=== PATIENT | male | born 1935 | race Caucasian/White ===

== ENCOUNTER 2017-03-22 15:54 | Emergency (ER) | payer MEDICARE, BC ==
[2017-03-22] MEDS ORDERED: Ondansetron INJ* 2 MG/ML VIAL IV ONE (16:40)
[2017-03-22] MEDS ORDERED: Morphine INJ* 4 MG/ML 1 ML SYRINGE IV ONE (16:40)
[2017-03-22] MEDS ORDERED: NS 0.9% 1000 ML* 1,000 ML IV ONE (16:41)
[2017-03-22 16:52] LABS: Hematocrit 39 % (42-52); Mean Corpuscular HGB Conc 34 g/dl (31-36); Mean Corpuscular Hemoglobin 33 pg (27-31); Mean Corpuscular Volume 99 fL (80-94); Mean Platelet Volume 9 um3 (7.4-10.4); Red Blood Count 3.91 10^6/ul (4.0-5.4); Red Cell Distribution Width 13 % (10.5-15); White Blood Count 5.6 10^3/ul (3.5-10.8)
[2017-03-22 17:08] LABS: BUN/Creatinine Ratio 19.5 (8-20); Calcium 8.6 mg/dL (8.6-10.3); EGFR African American 72.6 (>60); EGFR Non-African American 56.5 (>60)
[2017-03-22 18:00] VITALS: BP 129/55
[2017-03-22] MEDS ORDERED: oxyCODONE/Acetamin 5/325 MG* TAB PO ONE (18:49)
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
== END 2017-03-22 19:07 | disposition home or self-care (01) ==
LOC: ED 15:54
DX: T23.201A Burn of second degree of right hand, unspecified site, initial encounter (principal); T20.06XA Burn of unspecified degree of forehead and cheek, initial encounter; T31.0 Burns involving less than 10% of body surface; W40.1XXA Explosion of explosive gases, initial encounter; Y93.89 Activity, other specified; Y92.9 Unspecified place or not applicable; Z87.891 Personal history of nicotine dependence; Z88.5 Allergy status to narcotic agent
CPT/HCPCS: 36415; 80048; 85027; 96360; 96374; 96375; 99282; A9270-GY; J2270; J2405

== ENCOUNTER 2017-06-02 19:55 | Observation (INO) | payer MEDICARE, BC ==
[2017-06-02] MEDS ORDERED: NS 0.9% 1000 ML* 1,000 ML IV ONE (20:05)
[2017-06-02] MEDS ORDERED: Aspirin TAB* 325 MG PO ONE (20:31)
--- NOTE | 2017-06-02 20:33 | RAD ---
INDICATION: Slurring speech COMPARISON: None. TECHNIQUE: Contiguous axial sections of the brain were obtained from the skull base to the vertex without contrast. FINDINGS: The ventricles, cisterns and sulci symmetrical involutional changes. There is mild to moderate periventricular and subcortical white matter hypoattenuation most consistent with chronic microvascular disease. The topete-white matter differentiation is adequately maintained and there is no sulcal effacement. No significant focal abnormality or mass effect is present. There is no evidence for intracranial hemorrhage. No significant focal osseous abnormality is present. The visualized portion of the paranasal sinuses and mastoid air cells appear clear. IMPRESSION: Chronic findings include involutional changes and evidence of microvascular disease without CT visible acute intracranial abnormality. Findings were reported Dr. Oreilly over the telephone at 2021 hours on June 02, 2017.
[2017-06-02 20:50] LABS: Hematocrit 33 % (42-52); Hemoglobin 11.3 g/dl (14.0-18.0); Mean Corpuscular HGB Conc 34 g/dl (31-36); Mean Corpuscular Hemoglobin 33 pg (27-31); Mean Corpuscular Volume 96 fL (80-94); Mean Platelet Volume 8 um3 (7.4-10.4); Red Blood Count 3.44 10^6/ul (4.0-5.4); Red Cell Distribution Width 13 % (10.5-15); White Blood Count 8.2 10^3/ul (3.5-10.8)
[2017-06-02 21:09] LABS: Albumin 3.4 g/dL (3.2-5.2); BUN/Creatinine Ratio 26.1 (8-20); Calcium 8.6 mg/dL (8.6-10.3); EGFR African American 106.6 (>60); EGFR Non-African American 82.9 (>60); Globulin 3.4 g/dL (2-4); Potassium 3.8 mmol/L (3.5-5.0); Total Bilirubin 0.4 mg/dL (0.2-1.0); Total Protein 6.8 g/dL (6.4-8.9)
[2017-06-02 21:12] LABS: Troponin I 0.05 ng/mL (<0.04)
--- NOTE | 2017-06-02 21:16 | RAD ---
INDICATION: Possible stroke COMPARISON: Most recent comparison chest x-ray September 09, 2011 TECHNIQUE: Single AP portable view of the chest was obtained. FINDINGS: Image quality is compromised due to the relative inferiority of a portable chest x-ray. Stable postsurgical findings include sternotomy wires and surgical clips overlying the left upper mediastinum. There is been interval development of mild to moderate cardiomegaly. Pulmonary vasculature is normally engorged and slightly indistinct. There is density obscuring the left hemidiaphragm and causing left costophrenic angle blunting. Visualized bones are normal for the patient's age. IMPRESSION: In the correct clinical setting this constellation of findings could be compatible with cardiogenic pulmonary edema, potentially with a small left pleural effusion.
[2017-06-02 21:29] LABS: C Reactive Protein 32.97 mg/L (< 5.00)
[2017-06-02] MEDS ORDERED: Iohexol 350* (CONTRAST) 500 ML MDV IV ONE (21:46)
[2017-06-02 21:52] LABS: Urine Bilirubin Negative (Negative); Urine Glucose Negative (Negative); Urine Nitrite Negative (Negative)
[2017-06-03] MEDS ORDERED: NS 0.9% 1000 ML* 1,000 ML IV SCH (00:15)
[2017-06-03] MEDS ORDERED: Acetaminophen TAB* 325 MG PO PRN (01:21)
[2017-06-03] MEDS ORDERED: Ondansetron INJ* 2 MG/ML VIAL IV PRN (01:21)
--- NOTE | 2017-06-03 01:42 | ED ---
Rebekah Buck Rebecca, scribed for Freddie Oreilly MD on 06/02/17 at 2023 . Altered Mental Status - HPI Summary HPI Summary: Pt is an 82 y/o M BIBA who presents to ED after EMS was called for AMS. Son reports that at approximately 1500 he suddenly began presenting with confusion and aphasia. After onset of symptoms, the pt continued to be able to walk and was able to make dinner. Son states that he was unable to recall the president while EMS state that he was babbling and disoriented. While en route to [facility] ED , symptoms spontaneously resolved. Upon evaluation, pt cannot recall the episode , stating that he felt pretty good prior to onset and now cannot recall details of the episode. EMS note that he was in A Flutter while en route to the ED. Prior similar symptoms about 1 week ago that spontaneously resolved, though he does not remember that incident either. Notes that about 1 week ago he was seen by [facility] for L-sided facial swelling that has since resolved and he was D/C with a possible Dx of shingles. No PMHx A Fib or A Flutter. Is not on blood thinners and recently stopped his Metoprolol. - History Of Current Complaint Chief Complaint: EDAltMentalStatus Stated Complaint: POSSIBLE STROKE Time Seen by Provider: 06/02/17 20:06 Hx Obtained From: Patient, Family/Bank Reconciliator - Son, EMS Onset/Duration: Resolved Timing: Lasting Hours Severity Currently: None Character: Confusion Aggravating Factor(s): Nothing Alleviating Factor(s): Other - Spontaneous resolution Related History: Similar Episode/Diagnosed As: - Simliar episode last week - Allergies/Home Medications Allergies/Adverse Reactions: Allergies Allergy/AdvReac Type Severity Reaction Status Date / Time Codeine Allergy Unknown Verified 03/22/17 16:31 Reaction Details Home Medications: Home Medications Metoprolol Tartrate TAB* [Lopressor TAB*] 25 mg PO DAILY 06/03/17 [History Confirmed 06/03/17] PMH/Surg Hx/FS Hx/Imm Hx Cardiovascular History: Denies: Hx Atrial Fibrillation History: Denies: Hx Chronic Renal Failure, Hx Dialysis, Hx Kidney Infection, Hx Kidney Stones, Hx Renal Disease Infectious Disease History: Denies: Traveled Outside the [place] in Last 30 Days - Family History Known Family History: Positive: Cardiac Disease, Other - cancer - Social History Alcohol Use: None Hx Substance Use: No Substance Use Type: Reports: None Hx Tobacco Use: Yes Smoking Status (MU): Former Smoker Review of Systems Positive: Other - A flutter en route, per EMS Neurological: Other - Confusion and aphasia (resolved), memory loss of incidence of symptoms All Other Systems Reviewed And Are Negative: Yes Physical Exam - Summary Physical Exam Summary: General: well-appearing, no pain distress Skin: warm, color reflects adequate perfusion, dry Head: normal Eyes: EOMI, CHEN ENT: normal Neck: supple, nontender Respiratory: CTA, breath sounds present Cardiovascular: RRR Abdomen: soft, nontender Bowel: present Musculoskeletal: normal, strength/ROM intact Neurological: normal, sensory/motor intact, A&O x3 Psychological: affect/mood appropriate NIH: 0 GCS: 15 Triage Information Reviewed: Yes Vital Signs On Initial Exam: Initial Vitals Temp Pulse Resp BP Pulse Ox 100.8 F 66 19 138/76 96 06/02/17 20:20 06/02/17 20:20 06/02/17 20:20 06/02/17 20:20 06/02/17 20:20 Vital Signs Reviewed: Yes - Angela Coma Scale Best Eye Response: 4 - Spontaneous Best Motor Response: 6 - Obeys Commands Best Verbal Response: 5 - Oriented Diagnostics - Vital Signs Vital Signs Temp Pulse Resp BP Pulse Ox 06/02/17 23:30 119/52 06/02/17 23:00 56 23 104/63 93 06/02/17 22:30 125/62 06/02/17 22:01 54 21 95 06/02/17 22:00 52 23 94 06/02/17 21:30 58 21 121/59 94 06/02/17 21:01 62 22 97 06/02/17 21:00 141/98 06/02/17 20:24 62 20 138/76 96 06/02/17 20:20 100.8 F 66 19 138/76 96 - Laboratory Lab Results: Lab Results 06/02/17 06/02/17 06/02/17 Range/Units 20:30 20:30 20:30 WBC 8.2 (3.5-10.8) 10^3/ul RBC 3.44 L (4.0-5.4) 10^6/ul Hgb 11.3 L (14.0-18.0) g/dl Hct 33 L (42-52) % MCV 96 H (80-94) fL MCH 33 H (27-31) pg MCHC 34 (31-36) g/dl RDW 13 (10.5-15) % Plt Count 214 (150-450) 10^3/ul MPV 8 (7.4-10.4) um3 Neut % (Auto) 77.0 (38-83) % Lymph % (Auto) 14.5 L (25-47) % Calloway % (Auto) 7.1 (1-9) % Eos % (Auto) 0.7 (0-6) % Baso % (Auto) 0.7 (0-2) % Absolute Neuts (auto) 6.3 (1.5-7.7) 10^3/ul Absolute Lymphs (auto) 1.2 (1.0-4.8) 10^3/ul Absolute Monos (auto) 0.6 (0-0.8) 10^3/ul Absolute Eos (auto) 0.1 (0-0.6) 10^3/ul Absolute Basos (auto) 0.1 (0-0.2) 10^3/ul Absolute Nucleated RBC 0.01 10^3/ul Nucleated RBC % 0.1 INR (Anticoag Therapy) 1.08 (0.89-1.11) APTT 31.1 (26.0-36.3) seconds Sodium 135 (133-145) mmol/L Potassium 3.8 (3.5-5.0) mmol/L Chloride 104 (101-111) mmol/L Carbon Dioxide 26 (22-32) mmol/L Anion Gap 5 (2-11) mmol/L BUN 23 (6-24) mg/dL Creatinine 0.88 (0.67-1.17) mg/dL Est GFR ( Amer) 106.6 (>60) Est GFR (Non-Af Amer) 82.9 (>60) BUN/Creatinine Ratio 26.1 H (8-20) Glucose 120 H (70-100) mg/dL Lactic Acid (0.5-2.0) mmol/L Calcium 8.6 (8.6-10.3) mg/dL Total Bilirubin 0.40 (0.2-1.0) mg/dL AST 31 (13-39) U/L ALT 21 (7-52) U/L Alkaline Phosphatase 83 (34-104) U/L Troponin I 0.05 H* (<0.04) ng/mL C-Reactive Protein 32.97 H (< 5.00) mg/L B-Natriuretic Peptide ( - 100) pg/mL Total Protein 6.8 (6.4-8.9) g/dL Albumin 3.4 (3.2-5.2) g/dL Globulin 3.4 (2-4) g/dL Albumin/Globulin Ratio 1.0 (1-3) Triglycerides 115 mg/dL Cholesterol 135 mg/dL LDL Cholesterol 82 mg/dL HDL Cholesterol 30.0 mg/dL Urine Color Urine Appearance Urine pH (5-9) Ur Specific [place] (1.010-1.030) Urine Protein (Negative) Urine Ketones (Negative) Urine Blood (Negative) Urine Nitrate (Negative) Urine Bilirubin (Negative) Urine Urobilinogen (Negative) Ur Leukocyte Esterase (Negative) Urine Glucose (Negative) Influenza A (Rapid) (Negative) Influenza B (Rapid) (Negative) Blood Type Antibody Screen 06/02/17 06/02/17 06/02/17 Range/Units 20:30 20:30 20:30 WBC (3.5-10.8) 10^3/ul RBC (4.0-5.4) 10^6/ul Hgb (14.0-18.0) g/dl Hct (42-52) % MCV (80-94) fL MCH (27-31) pg MCHC (31-36) g/dl RDW (10.5-15) % Plt Count (150-450) 10^3/ul MPV (7.4-10.4) um3 Neut % (Auto) (38-83) % Lymph % (Auto) (25-47) % Calloway % (Auto) (1-9) % Eos % (Auto) (0-6) % Baso % (Auto) (0-2) % Absolute Neuts (auto) (1.5-7.7) 10^3/ul Absolute Lymphs (auto) (1.0-4.8) 10^3/ul Absolute Monos (auto) (0-0.8) 10^3/ul Absolute Eos (auto) (0-0.6) 10^3/ul Absolute Basos (auto) (0-0.2) 10^3/ul Absolute Nucleated RBC 10^3/ul Nucleated RBC % INR (Anticoag Therapy) (0.89-1.11) APTT (26.0-36.3) seconds Sodium (133-145) mmol/L Potassium (3.5-5.0) mmol/L Chloride (101-111) mmol/L Carbon Dioxide (22-32) mmol/L Anion Gap (2-11) mmol/L BUN (6-24) mg/dL Creatinine (0.67-1.17) mg/dL Est GFR ( Amer) (>60) Est GFR (Non-Af Amer) (>60) BUN/Creatinine Ratio (8-20) Glucose (70-100) mg/dL Lactic Acid 0.9 (0.5-2.0) mmol/L Calcium (8.6-10.3) mg/dL Total Bilirubin (0.2-1.0) mg/dL AST (13-39) U/L ALT (7-52) U/L Alkaline Phosphatase (34-104) U/L Troponin I (<0.04) ng/mL C-Reactive Protein (< 5.00) mg/L B-Natriuretic Peptide 282 H ( - 100) pg/mL Total Protein (6.4-8.9) g/dL Albumin (3.2-5.2) g/dL Globulin (2-4) g/dL Albumin/Globulin Ratio (1-3) Triglycerides mg/dL Cholesterol mg/dL LDL Cholesterol mg/dL HDL Cholesterol mg/dL Urine Color Urine Appearance Urine pH (5-9) Ur Specific [place] (1.010-1.030) Urine Protein (Negative) Urine Ketones (Negative) Urine Blood (Negative) Urine Nitrate (Negative) Urine Bilirubin (Negative) Urine Urobilinogen (Negative) Ur Leukocyte Esterase (Negative) Urine Glucose (Negative) Influenza A (Rapid) (Negative) Influenza B (Rapid) (Negative) Blood Type O Positive Antibody Screen Negative 06/02/17 06/02/17 Range/Units 21:28 22:24 WBC (3.5-10.8) 10^3/ul RBC (4.0-5.4) 10^6/ul Hgb (14.0-18.0) g/dl Hct (42-52) % MCV (80-94) fL MCH (27-31) pg MCHC (31-36) g/dl RDW (10.5-15) % Plt Count (150-450) 10^3/ul MPV (7.4-10.4) um3 Neut % (Auto) (38-83) % Lymph % (Auto) (25-47) % Calloway % (Auto) (1-9) % Eos % (Auto) (0-6) % Baso % (Auto) (0-2) % Absolute Neuts (auto) (1.5-7.7) 10^3/ul Absolute Lymphs (auto) (1.0-4.8) 10^3/ul Absolute Monos (auto) (0-0.8) 10^3/ul Absolute Eos (auto) (0-0.6) 10^3/ul Absolute Basos (auto) (0-0.2) 10^3/ul Absolute Nucleated RBC 10^3/ul Nucleated RBC % INR (Anticoag Therapy) (0.89-1.11) APTT (26.0-36.3) seconds Sodium (133-145) mmol/L Potassium (3.5-5.0) mmol/L Chloride (101-111) mmol/L Carbon Dioxide (22-32) mmol/L Anion Gap (2-11) mmol/L BUN (6-24) mg/dL Creatinine (0.67-1.17) mg/dL Est GFR ( Amer) (>60) Est GFR (Non-Af Amer) (>60) BUN/Creatinine Ratio (8-20) Glucose (70-100) mg/dL Lactic Acid (0.5-2.0) mmol/L Calcium (8.6-10.3) mg/dL Total Bilirubin (0.2-1.0) mg/dL AST (13-39) U/L ALT (7-52) U/L Alkaline Phosphatase (34-104) U/L Troponin I (<0.04) ng/mL C-Reactive Protein (< 5.00) mg/L B-Natriuretic Peptide ( - 100) pg/mL Total Protein (6.4-8.9) g/dL Albumin (3.2-5.2) g/dL Globulin (2-4) g/dL Albumin/Globulin Ratio (1-3) Triglycerides mg/dL Cholesterol mg/dL LDL Cholesterol mg/dL HDL Cholesterol mg/dL Urine Color Straw Urine Appearance Clear Urine pH 6.0 (5-9) Ur Specific [place] 1.005 L (1.010-1.030) Urine Protein Negative (Negative) Urine Ketones Negative (Negative) Urine Blood Negative (Negative) Urine Nitrate Negative (Negative) Urine Bilirubin Negative (Negative) Urine Urobilinogen Negative (Negative) Ur Leukocyte Esterase Negative (Negative) Urine Glucose Negative (Negative) Influenza A (Rapid) Negative (Negative) Influenza B (Rapid) Negative (Negative) Blood Type Antibody Screen Result Diagrams: 06/02/17 20:30 06/02/17 20:30 Lab Statement: Any lab studies that have been ordered have been reviewed, and results considered in the medical decision making process. - Radiology CXR Xray Interpretation: Positive (See Comments) - In the correct clinical setting this constellation of findings could be compatible with cardiogenic pulmonary edema, potentially with a small left pleural effusion. ED physician reviewed radiology report and agrees. Radiology Interpretation Completed By: Radiologist - CT Brain CT CT Interpretation: No Acute Changes - Chronic findings include involutional changes and evidence of microvascular disease without CT visible acute intracranial abnormality. Findings were reported Dr. Oreilly over the telephone at 2029 hours on June 02, 2017. ED physician reviewed radiology report and agrees. CT Interpretation Completed By: Radiologist Head/Neck CTA CT Interpretation Completed By: Radiologist - Head: No major arterial branch occlusion, vascular malformation or aneurysm 3 mm or greater. No definite acute hemorrhage, mass, or acute territorial infarct, but exam limited by contrast technique. Age-related involutional changes. Essentially clear visualized paranasal sinuses. Mastoid air cells clear. Neck: Moderate stenosis right carotid bulb and proximal ICA and very minimal stenosis left carotid bulb and proximal ICA. Patent bilateral common carotid and vertebral arteries. Retropharyngeal right ICA. Median sternotomy. Mediastinal lymphadenopathy, indeterminate. Emphysematous changes, calcified granulomas and nodular scarring upper lobes, advise followup to exclude pulmonary nodules. ED physician reviewed radiology report and agrees. - EKG 2016 Cardiac Rate: NL - bpm EKG Rhythm: Atrial Fibrillation EKG Interpretation: RBBB, L anterior vesicular block National Institutes Of Health - NIH Scale Level of Consciousness: Alert/Keenly Responsive Ask Patient the Month and His/Her Age: Both Correct Ask Pt to Open/Close Eyes and Kick Press Setter/Release Non-Paretic Hand: Both Correctly Best Gaze (Only Horizontal Eye Movement): Normal Visual Field Testing: No Visual Loss Facial Paresis-Pt to Smile & Close Eyes or Grimace Symmetry: Normal/Symmetrical Motor Function - Right Arm: No Drift-Holds 10 Seconds Motor Function - Left Arm: No Drift-Holds 10 Seconds Motor Function - Right Leg: No Drift-Holds 10 Seconds Motor Function - Left Leg: No Drift-Holds 10 Seconds Limb Ataxia-Must be out of Proportion to Weakness Present: Absent Sensory (Use Pinprick to Test Arms/Legs/Trunk/Face): Normal Best Language (Describe Picture, Name Items): No Aphasia Dysarthria (Read Several Words): Normal Extinction and Inattention: No Abnormality Total Score: 0 Re-Evaluation - Re-Evaluation First Eval Re-Evaluation Time: 21:34 Comment: Pt report she feels well, but occasoinally his HR will drop to be in the 40s. Second Eval Re-Evaluation Time: 23:16 Comment: Dscussed results with the pt. Altered Mental Statu Course/Dx - Course Assessment/Plan: Pt medications reviewed. BP noted and advised f/u with PCP. DISCUSSED RESULTS WITH PATIENT/FAMILY. DISCUSSED WITH DR BAY NURAUSTYN. ADMIT HOSPITALIST. - Diagnoses Discharge Diagnoses: Altered mental state, Fever, Bradycardia, Atrial fibrillation During the Visit The Following Alert/Code Occurred: Code Rose - Called at 2004 - Provider Notifications Discussed Care Of Patient With: Terry Bay Time Discussed With Above Provider: 20:25 Instructed by Provider To: Other - Advised that due to his NIH stroke scale being [address] [facility] ED, that he wouldnot advise tPA. Recommended a CTA in case he has a tight carotid and may need to be transferred. If head CT is negative, advised ASA and is the CTA is negaive he recommended admission and an MRI tomorrow. Discussed care of pt with Dr. Edwar Whitt (hospitalist) at 2354 who accepted pt for admission. Discharge - Discharge Plan Condition: Stable Disposition: ADMITTED TO [facility] Referrals: Bobo Linn MD [Primary Care Provider] - The documentation as recorded by the Rebekah babin Rebecca accurately reflects the service I personally performed and the decisions made by me, Freddie Oreilly MD.
[2017-06-03] MEDS ORDERED: Rivaroxaban TAB(*) 10 MG PO SCH (03:00)
--- NOTE | 2017-06-03 03:58 | HP ---
CC: Dr. Linn * ADMISSION HISTORY AND PHYSICAL: DATE OF ADMISSION: 06/02/17 PRIMARY CARE PROVIDER: Dr. Linn. HEALTHCARE PROXY: Patient does not want to identify healthcare proxy at this time. CODE STATUS: Full. SOURCE OF INFORMATION: History obtained from interview with the patient and his son, review of past medical records. RELIABILITY: Fair. CHIEF COMPLAINT: Altered mental status. HISTORY OF PRESENT ILLNESS: This is an 82-year-old man with past medical history of CAD, status post 3-vessel cardiac bypass in 2010, systolic heart failure, on no medications except for metoprolol and aspirin, who has been in his usual state of health for approximately 10 days prior, started to develop subjective low-grade fevers as well as sensation of "I do not feel 100%." It was not associated with any weakness or fatigue. He was still quite active, mowing the lawn. Denied any symptoms of cough, shortness of breath, chest pain , symptoms, diarrhea, constipation. He did notice a rash on the left side of his face approximately 10 days prior that dissipated and then appeared on the right side of his face that was nonpruritic and largely asymptomatic. Today , the patient's son was notified by his sister that the patient was confused and "talking gibberish," although he is unable to indicate what talking gibberish was in reference to. The son arrived to the patient's home. The patient had seemed fine and himself to all involved; however, was unable to name the president or where he was when EMS arrived. For this reason, it was recommended he proceeded to the emergency room. By the time he arrived in the emergency room, the patient's son felt that the patient was back to his baseline. Denied any asymmetric strength, facial asymmetry, or slurred speech during the entirety of the event. In the emergency room, the patient was noted to be in new atrial fibrillation. Hospitalist service was consulted for admission. PAST MEDICAL HISTORY: Systolic heart failure, last EF 35% in 2010, GERD, renal calculi, known right bundle branch block, three-vessel CAD, status post bypass in 2010, appendectomy in 1948, cholecystectomy in 1991, hernia repair in 2005. HOME MEDICATIONS: 1. Metoprolol 25 mg daily. 2. Aspirin 81 mg daily. ALLERGIES: To CODEINE. FAMILY HISTORY: Parents in their 90s and a brother with type 2 diabetes and sister with uterine cancer. SOCIAL HISTORY: Past tobacco, quit approximately 25 years prior, 1 pack a day for approximately 15 years. No current alcohol. REVIEW OF SYSTEMS: As per HPI, otherwise all other systems negative. PHYSICAL EXAMINATION GENERAL: Younger than stated age, lying 30 degrees in bed, interactive, no apparent distress. VITAL SIGNS: When seen by this author, 91/39, heart rate is 51, respiratory rate 16, 98% on room air. T-max 100.8 degrees Fahrenheit. HEENT: Oropharynx is clear. He has moist mucous membranes. Sclerae anicteric. NECK: He has mildly elevated JVD just below the angle of the jaw. LUNGS: Have rales at the bases of approximately half way. HEART: He is in an irregularly irregular heart rate that is bradycardic with a soft 2/6 systolic ejection murmur. It is difficult to appreciate. ABDOMEN: Soft, nontender, nondistended with positive bowel sounds. EXTREMITIES: Warm and well-perfused without clubbing, cyanosis or edema. NEUROLOGIC: He is alert and oriented x3. His cranial nerves II through XII are intact. Strength is intact throughout. Sensation is intact. SKIN: Has confluent erythematous rash, surrounding on the lateral aspect of his right eye extending behind his right ear. He has no apparent anxiety, agitation, or depression. LABORATORY DATA: Pertinent laboratory data reviewed. BUN 23, creatinine 0.88 , glucose 120, lactic acid 0.9, AST 31, ALT 21, alk phos 83, troponin I 0.05. BNP 282. LDL 82, HDL 30, total cholesterol 135. Urine is benign, influenza A and B negative. White blood cell count 8.2, hemoglobin 11.3 with MCV of 96, platelets 214. Data reviewed: EKG atrial fibrillation, ventricular rate of 68, left axis, right bundle branch block, left anterior fascicular block, no Qs, late R-wave progression. No ST or T-wave changes. CTA, head and neck, overnight read: Moderate stenosis at the right carotid bulb and proximal ICA and very minimal stenosis of the left carotid bulb and proximal ICA, bilateral common carotid and vertebral arteries. Retropharyngeal right ICA. Head, no major arterial branch occlusion, vascular malformation, or aneurysm, 3 mm or greater. ASSESSMENT AND PLAN: This is an 82-year-old man with past medical history of coronary artery disease presenting with short episode of confusion, atrial fibrillation and slow ventricular response as well as mildly elevated troponin in the setting of a low-grade fever. Altered mental status. Unclear etiology at this time with low-grade fever, infectious etiology, potentially viral in the setting of rash is a possibility. However, in the setting of atrial fibrillation, off of anticoagulation, transient ischemic attack can certainly be a possibility out of concern. I will check another troponin now, rule out NSTEMI in the setting of new atrial fibrillation and if troponin is similar or declining, we will start oral anticoagulation, otherwise heparinized. Plan on MRI tomorrow. Elevated troponin. Potentially demand with increased pulmonary and vascular congestion on chest x-ray as well as bradycardia with atrial fibrillation. However, new atrial fibrillation does concern me for active ischemia that cannot be ruled out in absence of symptoms. I will trend troponin as indicated above. Pulmonary edema. History of systolic heart failure. We will not move to diurese at this time. The patient is on no oxygen. Does not have any increased work of breathing, not feeling short of breath. We will threshold the diurese if needed. Currently limited by blood pressures. Bradycardia. Check Lyme, although rash on face not consistent with typical known rash. Hold metoprolol. Continue aspirin. DVT prophylaxis. Xarelto. If troponins remain stable. [id number]/[facility] #: [id number] [facility] HOSPITALRebecca
[2017-06-03] MEDS ORDERED: Rivaroxaban TAB(*) 20 MG TAB PO SCH (04:00)
--- NOTE | 2017-06-03 07:54 | RAD ---
HISTORY: Transient altered mental status COMPARISONS: Head CT dated June 02, 2017, CT of the chest, abdomen, pelvis dated February 21, 2011 TECHNIQUE: Multiple contiguous axial CT scans were obtained of the head and neck After the administration of nonionic intravenous contrast timed to the systemic arterial phase of contrast enhancement. Coronal and sagittal multiplanar reformations are submitted for review. Multiple 3-D maximum intensity projection reconstructions are also submitted for review. FINDINGS: CTA NECK: AORTIC ARCH: There is calcific atherosclerotic disease of the aortic arch, without ostial or proximal stenosis of the cephalic great vessels. There is a normal three-vessel branching pattern. RIGHT VERTEBRAL ARTERY: The right vertebral artery is patent along its course, without stenosis. LEFT VERTEBRAL ARTERY: The left vertebral artery is patent along its course, without stenosis. DOMINANCE: The vertebral arteries are codominant. RIGHT COMMON CAROTID ARTERY: The right common carotid artery is patent. The right carotid bifurcation occurs at C3-C4 RIGHT INTERNAL CAROTID ARTERY: There is atheromatous disease of the right carotid bifurcation, without right internal carotid artery stenosis by NASCET criteria. RIGHT EXTERNAL CAROTID ARTERY: The right external carotid artery is unremarkable. LEFT COMMON CAROTID ARTERY: The left common carotid artery is patent. The left carotid bifurcation occurs at C3-C4 LEFT INTERNAL CAROTID ARTERY: There is no left internal carotid artery stenosis by NASCET criteria. LEFT EXTERNAL CAROTID ARTERY: The left external carotid artery is unremarkable. VENOUS CIRCULATION: The venous system is unremarkable. SALIVARY GLANDS: The parotid glands, submandibular glands, sublingual glands are normal. NASAL CAVITY/NASOPHARYNX: The nasal cavity and nasopharynx are normal. ORAL CAVITY/OROPHARYNX: The oral cavity is obscured by streak artifact from dental amalgam. The visualized oral cavity and oropharynx are unremarkable. LARYNGEAL APPARATUS/HYPOPHARYNX: The laryngeal apparatus and hypopharynx are normal. UPPER AIRWAY/UPPER ESOPHAGUS: The visualized upper airway and esophagus are normal. LUNG APICES: There is calcified granuloma of the right lung apex. There is mediastinal lymphadenopathy similar to the previous examination. THYROID GLAND: The thyroid gland is normal. LYMPH NODES: There is no lymphadenopathy by size criteria. BONES AND SOFT TISSUES: Degenerative changes are noted. The patient is status post median sternotomy. CTA HEAD: INTRACRANIAL CIRCULATION: There is no aneurysm, vascular malformation, occlusion, or stenosis of the visualized intracranial circulation. The anterior communicating artery complex is clear. Bilateral posterior communicating arteries are identified. VENOUS CIRCULATION: The venous system is unremarkable. PERFUSION: There is no obvious parenchymal perfusion deficit. HEMORRHAGE/INFARCT: There is no hemorrhage or acute infarct. MASSES/SHIFT: There is no mass or shift. EXTRA-AXIAL SPACES: There are no extra-axial fluid collections. SULCI AND VENTRICLES: There is diffuse and proportional enlargement of the sulci and ventricles. CEREBRUM: There is hypoattenuation of the periventricular and subcortical white matter. BRAINSTEM: There are no focal parenchymal abnormalities. CEREBELLUM: There are no focal parenchymal abnormalities. PARANASAL SINUSES: The paranasal sinuses are clear. ORBITS: Senile calcifications are noted BONES AND SOFT TISSUE: No bone or soft tissue abnormalities are noted. OTHER: There is no abnormal enhancement. IMPRESSION: 1. 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 2. NO ANEURYSM, VASCULAR MALFORMATION, OCCLUSION, OR STENOSIS OF THE VISUALIZED INTRACRANIAL CIRCULATION. 3. UPPER MEDIASTINAL LYMPHADENOPATHY SIMILAR TO PREVIOUS CT EXAMINATIONS. CPT II Codes: 3100F
[2017-06-03] MEDS: Aspirin Low Dose CHEW TAB* 81 MG PO SCH (08:04)
--- NOTE | 2017-06-03 11:08 | RAD ---
HISTORY: TIA, dizziness, weakness COMPARISONS: Head CT dated June 02, 2017 TECHNIQUE: The following sequences were obtained of the head: Sagittal T1-weighted images, axial T2-weighted images, axial FLAIR images, axial susceptibility weighted images, axial T1-weighted images. Additionally, axial diffusion-weighted images were obtained with calculated apparent diffusion coefficients. FINDINGS: The study is limited by patient motion artifact. HEMORRHAGE/INFARCT: There are small foci of acute diffusion within the left parietal lobe. Also, there is no hemorrhage or acute infarct. MASSES/SHIFT: There is no mass or shift. EXTRA-AXIAL SPACES/MENINGES: There are no extra-axial fluid collections. SULCI AND VENTRICLES: There is diffuse and proportional enlargement of the sulci and ventricles. CEREBRUM: There is multifocal elevated T2/FLAIR signal in the periventricular and subcortical white matter. There is elevated FLAIR signal corresponding to the areas of restricted diffusion within the left parietal lobe. BRAINSTEM: There is elevated T2/FLAIR signal in the pontine white matter. CEREBELLUM: There are no focal parenchymal abnormalities. The cerebellar tonsils are normal in size and position. SELLA: The sella is normal. PINEAL: The pineal region is clear. CP ANGLE/TEMPORAL BONES: The labyrinthine structures are grossly normal. VESSELS: Normal flow-voids are noted within the visualized vertebral vasculature. DIFFUSION ABNORMALITIES: As noted above, there are small foci of restricted diffusion within the left parietal lobe PARANASAL SINUSES/MASTOIDS: The paranasal sinuses are clear. ORBITS: The orbits are unremarkable. BONES AND SOFT TISSUE: No bone or soft tissue abnormalities are noted. OTHER: None IMPRESSION: 1. SMALL FOCI OF RESTRICTED DIFFUSION CONSISTENT WITH SUBACUTE NONHEMORRHAGIC INFARCT OF THE LEFT PARIETAL LOBE. 2. DIFFUSE INVOLUTIONAL CHANGE WITH CHRONIC SMALL VESSEL ISCHEMIC CHANGES
--- NOTE | 2017-06-03 14:31 | CONS ---
CC: Dr. Linn * CONSULTATION REPORT: DATE OF CONSULT: 06/03/17 PATIENT OF: Dr. Whitt. HISTORY OF PRESENT ILLNESS: This is an 82-year-old right-handed man who presented yesterday with aphasia that was for a brief period of time, in the setting of new onset atrial fibrillation. He, yesterday afternoon, was found to be confused and talking gibberish, and he proceeded to the emergency room. There was no weakness and he actually walked up to ambulance. Although he was seen within time for tPA, by the time he arrived at the ER his speech was back to normal and he had no deficits, therefore tPA was not given. He has had no prior stroke, but he has coronary artery disease, status post 3-vessel bypass, systolic heart failure. Of note, he had some low grade fevers and rash on the left side of his face, which he thought was poison dion. He has also had hypercholesterolemia but did not tolerate statins in the past. In addition, he has new onset AFib, noted in the emergency room; he has GERD; he has renal calculi; he has a right bundle branch block. He is status post appendectomy, cholecystectomy, and herniorrhaphy. MEDICATIONS: His only medicines include: 1. Metoprolol 25 mg daily. 2. Aspirin 81 mg daily. ALLERGIES: He is allergic to CODEINE. FAMILY HISTORY: His parents in their 90s, and his brother has diabetes, a sister with uterine cancer. SOCIAL HISTORY: He quite smoking 25 years ago and has had one pack a day for 15 years. He does not drink or use drugs. REVIEW OF SYSTEMS: Negative in all 14 spheres, other than the HPI. PHYSICAL EXAM: Temperature 97.8, pulse 46, respirations 20, blood pressure 147/ 48. He is alert and oriented with normal speech and comprehension. Cranial nerves II through XII are intact, other than he had decreased nasolabial fold on the right compared to the left. His does not know whether this is a change for him or not. Speech was normal including naming, repetition and understanding. Motor exam revealed normal tone, strength and coordination and gait. Sensation intact to light touch. Reflexes are 2 and equal, downgoing toes. Discs were sharp. Chest: Clear. Cardiovascular: Irregular rate. Abdomen: Soft with positive bowel sounds. DIAGNOSTIC STUDIES/LAB DATA: I reviewed his MRI scan. His MRI scan shows acute , left, non-hemorrhagic, parietal stroke that was small but clearly present. There was some mild chronic ischemic disease. CTA showed atheromatosis but no significant stenosis of carotid blood vessels or significant proximal clot. Labs include normal CMP, other than glucose of 120. Troponin was 0.05, C- reactive protein was 32. BMP was 282. His LDL was 82. Normal INR and PTT. Serology negative for influenza. UA was negative. IMPRESSION: I discussed this with Mr. Ricci and his family. I showed the his MRI scan films that he had a small left parietal stroke that caused transient comprehensive aphasia, which seems to be completely resolved by the time he got to the emergency room, he was not a tPA candidate. The most likely cause of this stroke was his new onset atrial fibrillation and he should be anticoagulated. However, there is a risk of hemorrhage with acute anticoagulation in stroke. His stroke is small, we do not need to wait 5 to 7 days, but I would wait another day or so and then anticoagulate, after repeating the CT scan to make sure that there is no interim hemorrhage. I discussed with the family that even at that time there would be some risk for hemorrhage, but it will be reduced and by that point the risk for further stroke from additional emboli would be higher. Waiting would put him at some risk for stroke in the interim, but we are trying to balance the pros and cons of when to treat. I do not think that his stroke is due to atherosclerotic disease, but it would be impossible to be entirely sure about this. I would recommend treating his LDL to get it below 70, if he does not tolerate statin then diet or other treatment should be considered. Thank you for sharing this case. [id number]/[facility] #: [id number] BABS
--- NOTE | 2017-06-03 16:16 | PN ---
Hospitalist Progress Note I saw and examined Mr. Ricci this morning and met with his daughter Paula. He feels completely better, but has little recollection of the events that caused his family to call EMS. He feels good this morning and wants to go home. On examination, he is still in an irregular rhythm, appears euvolemic, and is neurologically in tact. He does have slight facial asymmetry. Please see Dr. Whitt's H&P for full examination. 1. Acute parietal stroke Likely embolic in nature given afib Symptoms had resolved upon arrival to ED last night, no tpa indicated He is now at his baseline and is very active Will repeat CT in the morning before initiating therapeutic anticoagulation per neurology continue ASA; I discussed statins with him, as he should be on one for his CAD as well. He does report myalgias when he tried them in the past, so we will try rosuvastatin. 2. 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 He had afib at his cardiology appointment in September and declined anticoagulation at that time. I discussed anticoagulation in depth with Mr. Ricci and his daughter, and he agrees to taking it now. He does not need rate control at this time. Will repeat TTE to ensure there are no valvular lesions contributing and that a noac will be acceptable. 3. CAD s/p CABG continue asa, add statin. He has been prescribed metoprolol but hasn't taken it for 2 weeks because he didn't think he needed it. His heart rate has been in the 40s-50s here, so we may continue to hold it.
--- NOTE | 2017-06-03 17:05 | ECHO ---
Patient: SHAHRAM ADAMSON [facility] Rec#: [id number] : 1935 Date: 06/03/2017 Age: 82y Height: 185.4 cm / 73.0 in Weight: 91.2 kg / 201.0 lbs Sex: M BSA: 2.2 Room#: 434 Admit Date#: 06/03/2017 Type: Inpatient Referring: Brooke Gramajo MD Reading: Kevin Avery DO Roller Man: Cherie Mckoy RN RDCS CC: Bobo Linn MD Transthoracic Echocardiogram Indication: Atrial fibrillation BP: 108/50 HR: 46 Rhythm: A-Flutter Findings History: CAD, CABG in 2010, CHF, RBBB, GERD, former smoker Technical Comments: The study quality is fair. The study is technically limited due to the patient's smoking history. Completed at 1550. Left Ventricle: The left ventricular chamber size is normal. Moderate concentric left ventricular hypertrophy is observed. There is normal left ventricular systolic function. The estimated ejection fraction is 60-65%. Ventricular septal wall motion has a post-operative appearance. The assessment of diastolic function is non-diagnostic. Left Atrium: The left atrium is mildly dilated. Right Ventricle: The right ventricular cavity size is normal. The right ventricular global systolic function is mildly reduced. Right Atrium: The right atrium is mildly dilated. Aortic Valve: The aortic valve is trileaflet. The aortic valve leaflets are moderately thickened. Systolic excursion of the aortic valve cusps is reduced. There is a trace of aortic regurgitation. There is mild aortic stenosis. Mitral Valve: Moderate mitral annular calcification present. The mitral valve leaflets are moderately thickened. Mitral valve leaflet mobility is mildly restricted. There is mild mitral regurgitation. There is mild mitral stenosis. Tricuspid Valve: The tricuspid valve leaflets are normal. There is trace to mild tricuspid regurgitation. No pulmonary hypertension is noted. Pulmonic Valve: The pulmonic valve appears normal. There is trace to mild pulmonic regurgitation. There is no pulmonic stenosis. Pericardium: There is no significant pericardial effusion. A pericardial fat pad is visualized. Aorta: There is no dilatation of the ascending aorta. The aortic arch is not well visualized. There is no dilation of the aortic root. Pulmonary Artery: The main pulmonary artery is not well visualized. Venous: The inferior vena cava appears normal in size. There is an approximate 50% respiratory change in the inferior vena cava dimension. Conclusions Patient appears to be in atrial fibrillation at the time of study. The left ventricular chamber size is normal. Moderate concentric left ventricular hypertrophy is observed. There is normal left ventricular systolic function. The estimated ejection fraction is 60-65%. Ventricular septal wall motion has a post-operative appearance. The left atrium is mildly dilated. The right ventricular cavity size is normal. The right ventricular global systolic function is mildly reduced. There is mild aortic stenosis. Moderate mitral annular calcification present. There is mild mitral regurgitation. There is mild mitral stenosis. No pulmonary hypertension is noted. Compared to prior study from 04/2015, the LVEF has improved from 45-50% Measurements Name Value Normal Range RVIDd (AP) 2D 2.8 cm (0.9 - 2.6) RVDdMajor (2D) 3.9 cm (2.2 - 4.4) RAd ISD 4CH 5.4 cm (3.4 - 4.9) RA (A4C)W 4 cm (2.9 - 4.6) IVSd (2D) 1.5 cm (0.6 - 1) LVPWd (2D) 1.4 cm (0.6 - 1) LVIDd (2D) 4.8 cm (3.6 - 5.4) Aortic Annulus 2.2 cm (1.4 - 2.6) Ao root diameter (2D) 3.2 cm (2.1 - 3.5) Ascending Ao 3.3 cm (2.1 - 3.4) LA dimension (AP) 2D 4.1 cm (2.3 - 3.8) LAd ISD 4CH 6.7 cm (2.9 - 5.3) LA ISD 4CH W 4.3 cm (2.5 - 4.5) Aortic root diameter (2D1 cm/m2 - Name Value Normal Range LA ESV SP 4CH (A/L) 72 ml - LA ESV SP 2CH (A/L) 69 ml - LA ESV BP (A/L) 75 ml - LA ESV BP (A/L) index 35 ml/m2 - LA ESV SP 4CH (MOD) 66 ml - LA ESV SP 2CH (MOD) 67 ml - Name Value Normal Range MV E-wave Vmax 1.5 m/sec - MV deceleration time 231 msec - LV septal e' Vmax 0.06 m/sec - LV lateral e' Vmax 0.07 m/sec - LV E:e' septal ratio 25 ratio - LV E:e' lateral ratio 21.4 ratio - Name Value Normal Range AV Vmax 2.3 m/sec - AV VTI 53.5 cm - AV peak gradient 21.4 mmHg - AV mean gradient 11.4 mmHg - LVOT diameter 2.2 cm - LVOT Vmax 1 m/sec - LVOT VTI 22.9 cm - LVOT mean gradient 2.2 mmHg - DOI (VTI) 0.43 ratio - DOI (Vmax) 0.45 ratio - SV LVOT 68.7 ml - Cardiac index 1.5 l/min/m2 - NEYMAR (continuity VTI) 1.63 cm2 - Name Value Normal Range MV Vmax 1.5 m/sec - MV VTI 38.8 cm - MV peak gradient 9.6 mmHg - MV mean gradient 2.6 mmHg - MV PHT 91 msec - MVA (PHT) 2.4 cm2 - MVA (continuity VTI) 1.8 cm2 - Name Value Normal Range TR Vmax 2.4 m/sec - TR peak gradient 23 mmHg - RAP 8 mmHg - RVSP 31 mmHg - IVC diameter 1.6 cm - Name Value Normal Range PV Vmax 0.79 m/sec -
--- NOTE | 2017-06-04 08:00 | RAD ---
HISTORY: Parietal stroke, starting anticoagulation COMPARISONS: June 02, 2017, MRI dated June 03, 2017 TECHNIQUE: Multiple contiguous axial CT scans were obtained of the head without intravenous contrast. FINDINGS: HEMORRHAGE/INFARCT: There is minimal hypoattenuation corresponding to the subacute infarct of the left parietal lobe. Elsewhere, there is no hemorrhage or acute infarct. MASSES/SHIFT: There is no mass or shift. EXTRA-AXIAL SPACES: There are no extra-axial fluid collections. SULCI AND VENTRICLES: The sulci and ventricles are normal in size and position for the patient's stated age. CEREBRUM: As noted above, there is minimal cortical hypoattenuation of the left parietal lobe corresponding to the restricted diffusion noted on MRI. BRAINSTEM: There are no focal parenchymal abnormalities. CEREBELLUM: There are no focal parenchymal abnormalities. VESSELS: The vessels are grossly normal. PARANASAL SINUSES: The paranasal sinuses are clear. ORBITS: The orbits are unremarkable. BONES AND SOFT TISSUE: No bone or soft tissue abnormalities are noted. OTHER: None IMPRESSION: THERE IS MINIMAL HYPOATTENUATION OF THE LEFT PARIETAL CORTEX CONSISTENT WITH SUBACUTE INFARCT, CORRESPONDING TO THE RESTRICTED DIFFUSION NOTED ON MRI. THERE IS NO HEMORRHAGE.
[2017-06-04] MEDS: Aspirin Low Dose CHEW TAB* 81 MG PO SCH (08:24)
[2017-06-04 08:26] VITALS: BP 133/56
--- NOTE | 2017-06-05 04:13 | DS ---
CC: Dr. Linn; Dr. Joseph; Dr. Bay * DISCHARGE SUMMARY: DATE OF ADMISSION: 06/03/17 DATE OF DISCHARGE: 06/04/17 PRIMARY CARE PROVIDER: Dr. Linn. PIN WORKER: Dr. Joseph. PRINCIPAL DISCHARGE DIAGNOSIS: Acute left parietal cerebrovascular accident. SECONDARY DISCHARGE DIAGNOSES: 1. Atrial fibrillation. 2. Coronary artery disease, status post CABG. 3. History of systolic heart failure, now with recovered ejection fraction. 4. Right bundle branch block. HOSPITAL COURSE: 1. Acute left parietal CVA. Mr. Ricci was admitted with acute onset dysarthria, which resolved upon arrival to the emergency department. He was admitted for TIA symptoms as CT head in the emergency department was negative. An MRI the following morning did show a small left parietal stroke, which was thought to account for his symptoms the prior day. Neurology was consulted, who agreed with the findings on the MRI likely contributing to his symptoms the day prior. A CT angio showed some atherosclerotic disease, but it was not thought to have accounted for his acute stroke. He was monitored over the next 24 hours and had no new neurologic deficits. He and his family agreed that he had returned to baseline. A CT scan the following day showed no hemorrhage or progression of CVA, so at that time therapeutic anticoagulation will be started. He had not been on a statin prior to admission due to history of myalgias, but he agrees to retry it. He is being prescribed rosuvastatin and I recommended taking it at bedtime and discontinuing it if he has recurrent side effects. He will be continued on his daily baby aspirin. 2. Atrial fibrillation. This was thought to be new in the emergency department ; however, upon further discussion with his book or script editor, Dr. Joseph, it was discovered that he has had atrial fibrillation in past visits; however, he deferred therapeutic anticoagulation at that time. Now that he has had a CVA, his CHADS2- VASc score is even higher and I recommended therapeutic anticoagulation to him. He does agree with starting this. Unfortunately, I discharged him with Xarelto; however, the pharmacy called and reported that he has no prescription coverage. Therefore, I switched him to warfarin 5 mg daily to start today on 06/04/17 and I scheduled a followup with his primary care physician in 4 days where he will have an INR check. He did not require any rate control during this admission. He had been on metoprolol daily at home; however, he self discontinued it 2 weeks ago due to low blood pressure and in fact while he has been here, his heart rate has been in the 40s to 50s, so I am instructing him to discontinue his metoprolol. He also is quite resistant to medications and we decided that if he will only take a few pills, aspirin and anticoagulation are more important at this point. 3. Coronary artery disease, status post CABG. He had been unable to tolerate statins in the past, but now in the setting of a new CVA and coronary artery disease, I encouraged him to try rosuvastatin again and he agrees to do so. We discontinued metoprolol due to bradycardia and he will be continued on aspirin. 4. History of systolic heart failure now with recovered ejection fraction. A repeat echocardiogram on this admission showed a preserved ejection fraction and no regional wall motion abnormalities. 5. Disposition: The patient was discharged to home on 06/04/17 with his daughter in fair condition. He will follow up with his primary care physician, Dr. Linn on 06/08/17 for an INR check and followup and he was instructed to make a followup with Dr. Joseph as well. IMAGING ON THIS ADMISSION: Brain MRI 06/03/17, 1. Small foci of restricted diffusion consistent with subacute nonhemorrhagic infarct in the left parietal lobe. 2. Diffuse involutional change with chronic small vessel ischemic changes. Echocardiogram 06/03/17, the LV chamber size is normal, moderate concentric LV hypertrophy was observed. The estimated ejection fraction is 60% to 65%. Ventricular septal wall motion has a postoperative appearance. The left atrium is mildly dilated. The RV cavity size is normal. The RV global systolic function is mildly reduced and there was mild aortic stenosis. PHYSICAL EXAMINATION: On 06/04/17, temperature 97.4 degrees, heart rate 52, respiratory rate 16, pulse ox 98% on room air, blood pressure 133/56. General: Alert, well-appearing man in no distress. HEENT: Pupils equal, round and reactive to light. Slight left-sided facial droop with reduced nasolabial fold. Neck: No JVP. No cervical adenopathy. Chest: Irregular rhythm, bradycardic. No murmurs. Lungs: Clear bilaterally. Abdomen: Soft, nontender , nondistended. Extremities: No edema, no ecchymosis. Pulses 2+ bilaterally. Neurologic: Alert and oriented x3. Follows complex commands appropriately. Strength is 5/5 throughout. Deep tendon reflexes are 2+ throughout. Sensation is grossly intact. [id number]/[facility] #: [id number] [facility]
== END 2017-06-04 08:58 | disposition home or self-care (01) ==
LOC: ED 19:55 → SSU 06-03 01:21 → MEDTELE 06-03 02:21
PROVIDERS: ADMIT Internal Medicine; ATTEND Internal Medicine
DX: I63.9 Cerebral infarction, unspecified (principal); I48.91 Unspecified atrial fibrillation; I25.10 Atherosclerotic heart disease of native coronary artery without angina pectoris; Z95.1 Presence of aortocoronary bypass graft; I50.20 Unspecified systolic (congestive) heart failure; I45.2 Bifascicular block; Z88.8 Allergy status to other drugs, medicaments and biological substances; I51.7 Cardiomegaly; I65.21 Occlusion and stenosis of right carotid artery; R59.1 Generalized enlarged lymph nodes; Z79.899 Other long term (current) drug therapy; Z87.891 Personal history of nicotine dependence; Z79.82 Long term (current) use of aspirin
CPT/HCPCS: 36415; 70450; 70496; 70498; 70551; 71010; 80053; 80061; 81003; 83605; 83880; 84484; 85025; 85610; 85730; 86140; 86618; 86850; 86900; 86901; 87040; 87502; 93005; 93306; 96360; 96361; 99284; A9270-GY; G0378; Q9967

== ENCOUNTER 2018-09-13 10:06 | Inpatient (IN) | payer MEDICARE, BC ==
--- NOTE | 2018-09-13 10:18 | ED ---
Shortness of Breath - HPI Summary HPI Summary: This patient is a 83 year old M brought in by EMS to [facility] accompanied by his son with a chief complaint of SOB and dyspnea that began earlier today. The patient was at Dr Pollack when it was noticed the patient had a low O2 sat on room air, in the 70s- per EMS. EKG done by EMS does show PVCs. He was placed on 8L of a non-rebreather mask with improvement. Pt was dx with PNA last night at [facility] and is being treated for such. The patient rates the pain 0/10 in severity. Symptoms alleviated by sitting upright at rest. Pt is on warfrin. Hx triple bypass - History of Current Complaint Time Seen by Provider: 09/13/18 10:08 Hx Obtained From: Patient, Family/Side Stitcher, EMS Onset/Duration: Lasting Hours, Still Present Timing: Constant Current Severity: Moderate Dyspnea At: Exertion Alleviating Factors: EMS Tx Associated Signs & Symptoms: Negative - fever - Allergy/Home Medications Allergies/Adverse Reactions: Allergies Allergy/AdvReac Type Severity Reaction Status Date / Time codeine Allergy Intermediate Unknown Verified 09/12/18 17:36 Reaction Details PMH/Surg Hx/FS Hx/Imm Hx Endocrine/Hematology History: Denies: Hx Diabetes, Hx Thyroid Disease Cardiovascular History: Denies: Hx Atrial Fibrillation, Hx Congestive Heart Failure, Hx Hypertension , Hx Pacemaker/ICD, Other Cardiovascular Problems/Disorders Respiratory History: Reports: Hx Pneumonia Denies: Hx Asthma, Hx Chronic Obstructive Pulmonary Disease (COPD) GI History: Reports: Hx Hiatal Hernia Denies: Hx Ulcer History: Denies: Hx Chronic Renal Failure, Hx Dialysis, Hx Kidney Infection, Hx Kidney Stones, Hx Renal Disease Sensory History: Denies: Hx Cataracts, Hx Contacts or Glasses, Hx Hearing Aid Opthamlomology History: Denies: Hx Cataracts, Hx Contacts or Glasses Psychiatric History: Denies: Hx Panic Disorder - Surgical History Surgery Procedure, Year, and Place: [address], Hernia Repair 2005, Cholycystectomy 1991, Triple Bypass 2010 - Immunization History Date of Tetanus Vaccine: UTD Date of Influenza Vaccine: NO Infectious Disease History: Denies: Hx Hepatitis, Hx Human Immunodeficiency Virus (HIV) - Family History Known Family History: Positive: Cardiac Disease, Other - cancer - Social History Alcohol Use: None Hx Substance Use: No Substance Use Type: Reports: None Hx Tobacco Use: No Smoking Status (MU): Former Smoker Type: Cigarettes Have You Smoked in the Last Year: No Review of Systems Negative: Fever Cardiovascular: Other - dx with PNA Positive: Other - low O2 sat Positive: Shortness Of Breath, Other - dypnea All Other Systems Reviewed And Are Negative: Yes Physical Exam - Summary Physical Exam Summary: Appearance: The patient is well-nourished in no acute distress and in no acute pain. Skin: The skin is warm and dry and skin color reflects adequate perfusion. HEENT: The head is normocephalic and atraumatic. The pupils are equal and reactive. The conjunctivae are clear and without drainage. Nares are patent and without drainage. Mouth reveals moist mucous membranes and the throat is without erythema and exudate. The external ears are intact. The ear canals are patent and without drainage. The tympanic membranes are intact. Neck: The neck is supple with full range of motion and non-tender. There are no carotid bruits. There is no neck vein distension. Respiratory: Chest is non-tender. Lungs are clear to auscultation but the patient is borderline tachypneic Cardiovascular: bradycardic with a soft systolic injection murmur. There is no peripheral edema and pulses are symmetrical and equal. Abdomen: The abdomen is soft and non-tender. There are normal bowel sounds heard in all four quadrants and there is no organomegaly palpated. Musculoskeletal: There is no back tenderness noted. Extremities are non-tender with full range of motion. There is good capillary refill. There is no peripheral edema or calf tenderness elicited. Neurological: Patient is alert and oriented to person, place and time. The patient has symmetrical motor strength in all four extremities. Cranial nerves are grossly intact. Deep tendon reflexes are symmetrical and equal in all four extremities. Psychiatric: The patient has an appropriate affect and does not exhibit any anxiety or depression Triage Information Reviewed: Yes Vital Signs Reviewed: Yes Diagnostics - Laboratory Result Diagrams: 09/13/18 11:02 09/13/18 11:02 Lab Statement: Any lab studies that have been ordered have been reviewed, and results considered in the medical decision making process. - Radiology CXR Radiology Interpretation Completed By: Radiologist Summary of Radiographic Findings: PROGRESSION OF MULTIFOCAL CONSOLIDATION. ED physician has reviewed this radiology report. Re-Evaluation - Re-Evaluation First Eval Re-Evaluation Time: 11:37 Change: Worse Comment: The pt's HR is at 37 BPM but he is not reporting worsening sx. Cardiology will be consulted. Course/Dx - Course Course Of Treatment: Mr. Ricci was sent over from 's office for shortness of breath and low pulse ox. He was placed on oxygen which helped and transported him. He is placed on a monitor on arrival and is noted to be bradycardic in atrial fibrillation. He is not on a beta genevieve. He is in obvious respiratory distress on arrival but his lungs are reasonably clear and he has peripheral edema. Chest x-ray is read as infiltrates by radiology. He has no fever or leukocytosis. He has a mild elevation of his BNP and his troponin. I spoke with Dr. Barraza and the hospitalist about admission and consideration for pacemaker etc. - Diagnoses Provider Diagnoses: CHF (congestive heart failure), Symptomatic bradycardia - Physician Notifications Discussed Care of Patient With: Kris Barraza Time Discussed With Above Provider: 12:58 Instructed by Provider To: Other - He has agreed to consult on the patient. - Critical Care Time Critical Care Time: 30-74 min Discharge - Sign-Out/Discharge Documenting (check all that apply): Patient Departure - admitted - Discharge Plan Condition: Fair Disposition: ADMITTED TO [facility] Referrals: Bobo Linn MD [Primary Care Provider] - - Billing Disposition and Condition Condition: FAIR Disposition: Admitted to [facility] - Attestation Statements Document Initiated by Bryce: Yes Documenting Scribe: Abebe Summers Provider For Whom Bryce is Documenting (Include Credential): Kervin Lombardi MD Scribe Attestation: I, Abebe Summers , scribed for Kervin Lombardi MD on 09/13/18 at 2004. Scribe Documentation Reviewed: Yes Provider Attestation: The documentation as recorded by the Abebe babin accurately reflects the service I personally performed and the decisions made by me, Kervin Lombardi MD Status of Scribe Document: Viewed Consult Consult: [id number]: I informed Dr. Newby of the patien's case and she has agreed to admit the patient.
[2018-09-13 11:23] LABS: ABS Basophils 0 10^3/ul (0-0.2); ABS Eosinophils 0 10^3/ul (0-0.6); ABS Lymphocytes 0.9 10^3/ul (1.0-4.8); ABS Monocytes 0.5 10^3/ul (0-0.8); ABS Neutrophils 4.6 10^3/ul (1.5-7.7); ABS Nucleated RBC 0 10^3/ul; Eosinophil % 0.4 %; Hematocrit 39 % (42-52); Hemoglobin 12.7 g/dl (14.0-18.0); Lymphocyte % 14.9 %; Mean Corpuscular HGB Conc 33 g/dl (31-36); Mean Corpuscular Hemoglobin 32 pg (27-31); Mean Corpuscular Volume 97 fL (80-94); Mean Platelet Volume 8.8 fL (7.4-10.4); Nucleated Red Blood Cells % 0; Platelet Count 182 10^3/ul (150-450); Red Cell Distribution Width 14 % (10.5-15); White Blood Count 6.1 10^3/ul (3.5-10.8)
[2018-09-13 11:41] LABS: Albumin 3.6 g/dL (3.2-5.2); Albumin/Globulin Ratio 1.1 (1-3); BUN/Creatinine Ratio 31.9 (8-20); C Reactive Protein 9.71 mg/L (<8.01); Calcium 8.7 mg/dL (8.6-10.3); EGFR African American 92.7 (>60); EGFR Non-African American 76.6 (>60); Globulin 3.3 g/dL (2-4); Potassium 4.1 mmol/L (3.5-5.0); Total Bilirubin 0.5 mg/dL (0.2-1.0); Total Protein 6.9 g/dL (6.4-8.9)
[2018-09-13 13:41] LABS: Troponin I 0.03 ng/mL (<0.04)
[2018-09-13] MEDS ORDERED: Acetaminophen TAB* 325 MG PO PRN (13:48)
[2018-09-13] MEDS ORDERED: Ondansetron INJ* 2 MG/ML VIAL IV PRN (13:48)
[2018-09-13 14:07] LABS: Influenza A Molecular NEGATIVE (Negative); Influenza B Molecular NEGATIVE (Negative)
[2018-09-13] MEDS: Furosemide IV* 10 MG/ML VIAL (40 MG) IV SLOW PU SCH ×2 (15:07→17:54)
[2018-09-13 15:25] LABS: TSH (Thyroid Stimulating Horm) 3.37 mcIU/mL (0.34-5.60)
--- NOTE | 2018-09-13 17:04 | HP ---
CC: Dr. Bobo Linn; Dr. Vaughn Joseph * ADMISSION HISTORY AND PHYSICAL: DATE OF ADMISSION: 09/13/18 PRIMARY CARE PROVIDER: Dr. Bobo Linn. MY ATTENDING WHILE IN THE HOSPITAL: Dr. Sherri Newby.* (DICTATED BY MATT MORAN) OUTPATIENT [employer]: Dr. Vaughn Joseph. CHIEF COMPLAINT: Dyspnea on exertion x2 days. HISTORY OF PRESENT ILLNESS: Mr. Ricci is an 83-year-old male with a past medical history significant for previous heart failure with reduced ejection fraction, now normalized, status post stent with severe 3-vessel CAD in 2010; history of CVA in May 2017; and atrial fibrillation, who presents to the emergency department with 2 to 3 days of shortness of breath on exertion. The patient states he has no shortness of breath at rest and he is able to walk and he only notes he is getting short of breath when he walks approximately 100 yards from his shop to his house, which is at slight grade. The patient states the he gets short of breath when he lies flat. The patient states that he is usually able to lie flat while sleeping and has no orthopnea. The patient now at times has to sleep sitting up. The patient for the past several days has had paroxysms of a dry cough without any sputum production or wheezing. The patient denies fevers, chills, nausea, vomiting, abdominal pain, diarrhea. The patient has had no sick contacts. The patient has no discernible swelling of his legs, weight gain. The patient has no pain with breathing. The patient denies any recent tick bites and had a negative Lyme serology in May of this year. The patient has no rash except for a small area of dusky skin with overlying dry skin on his right flank and another one on his left thigh. The patient is generally very active and is able to cut wood with a chainsaw, walk, and has no functional limitations he can describe. The patient went to a convenient care on 09/12/18 with the same complaints and was diagnosed with pneumonia due to the appearance of multifocal infiltrate on his chest x-ray and bradycardia; however, the patient refused to be referred to the ED. The patient then called his vaccinator on the morning of 09/13/18, who told him to go to the emergency department. The patient in the emergency department had a chest x- ray consistent with heart failure and was needing 6 L of oxygen to maintain his oxygen saturation near 100. The patient on room air was found to have an oxygen saturation in the 70s. The patient while admitted in May 2017 was found to be borderline bradycardic with heart rates in the 40s and at that time his metoprolol was discontinued. Due to concern for heart failure exacerbation and severe bradycardia, we are asked to evaluate the patient for admission. PAST MEDICAL HISTORY: Heart failure with reduced ejection fraction, most recent EF was normalized; right bundle-branch block; coronary artery disease, status post CABG in 2010; CVA; atrial fibrillation; abdominal aortic aneurysm. PAST SURGICAL HISTORY: CABG in 2010, appendectomy in 1948, cholecystectomy in 1991, hernia repair in 2005. MEDICATIONS: 1. Warfarin 5 mg daily. 2. Augmentin 875 mg started yesterday. ALLERGIES: CODEINE. FAMILY HISTORY: The patient's mother and father both of old age in their 90s and had no medical history that the patient knew about. The patient has 10 siblings, most of whom are healthy, two of which have heart disease, one of whom has a pacemaker and one of whom has from their heart disease. They are unable to elucidate further. SOCIAL HISTORY: The patient smoked for approximately 20 years and quit many years ago. The patient did not drink alcohol or use illicit drugs. 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 The patient is and has 1 child. The patient's surrogate decision maker will be his son, Henri Ricci, and his grandson, Juan M Ricci. REVIEW OF SYSTEMS: A 14-point review of systems was reviewed and is negative except as noted above in the HPI. PHYSICAL EXAMINATION GENERAL: The patient is an 83-year-old male who appears stated age, sitting comfortably in bed, in no acute distress. VITAL SIGNS: Temperature 97.8, pulse rate 38, respiratory rate 23, oxygen saturation 99% on 6 L, and blood pressure 172/60. HEENT: Head normocephalic, atraumatic. Sclerae anicteric. No conjunctival injection. Nasal mucosa moist. Oral mucosa moist. No pharyngeal erythema, discharge, or exudate. NECK: Supple, nontender. No lymphadenopathy. No carotid bruit auscultated. No JVD. RESPIRATORY: Moderate amount of inspiratory rales in the bilateral lower and middle lobes. No adventitious lung sounds. Good air exchange bilaterally. CARDIAC: Bradycardiac. Irregularly irregular rhythm. No clicks, murmurs, gallops, or rubs. Pulses are 2+ in the bilateral dorsalis pedis, posterior tibial, and radial areas, 1+ bilateral lower extremity edema. No bilateral calf tenderness. ABDOMEN: Soft, nontender, and nondistended. Bowel sounds present, normoactive in all 4 quadrants. No hepatosplenomegaly. No abdominal bruit auscultated. No hepatojugular reflux. GENITOURINARY: No suprapubic or CVA tenderness. SKIN: Small, dusky area, ovoid, approximately 2 cm in the long dimension, 1 cm in the short dimension, with 2 other similar areas on the right flank, another area per the patient on the left thigh not visualized. No other rashes except for actinic keratoses. NEUROLOGIC: Cranial nerves II through XII intact. No focal deficits. Alert and oriented x3. PSYCHIATRIC: Pleasant and cooperative. DIAGNOSTIC STUDIES/LAB DATA: White blood cell count 6.1, hemoglobin 12.7, hematocrit 39, platelet count 182, INR 2.0, D-dimer less than 200. ABG: pH 7.39, pCO2 36, pO2 86, oxygen saturation 98.1%. Sodium 138, potassium 4.1, chloride 106, carbon dioxide 27, anion gap 5, BUN 30, creatinine 0.97, glucose 152, lactic acid 1.1, calcium 8.7, bilirubin 0.5, AST 58, ALT 67, alkaline phosphatase 101, troponin I 0.03, CRP 9.71, BNP 273, protein 6.9, albumin 3.6, globulin 3.3. Studies: Chest x-ray read as confluent alveolar opacification in the right middle and lower lung cochran and left lower lung field, progressed from previous examination on 09/12/18. EKG shows right bundle-branch block, left axis deviation likely representing left anterior fascicular block, no ST-segment elevation or depression, no significant changes from previous exam, rate of 39, QTC of 444. ASSESSMENT AND PLAN: Impression: Mr. Ricci is an 83-year-old male with past medical history significant for history of heart failure, now with normalized ejection fraction; coronary artery disease, status post coronary artery bypass graft; cerebrovascular accident; atrial fibrillation; and abdominal aortic aneurysm, who presents to the emergency department with severe symptomatic bradycardia and heart failure exacerbation, who will be admitted to the hospital for diuresis and consideration for pacemaker placement. 1. Bradycardia. The patient's bradycardia is severe. The patient has a known history of bradycardia. The patient is in atrial fibrillation and has been since at least 2016 when he was most recently admitted to the hospital. The patient at that time had metoprolol stopped. It is unclear why the patient began to have more severe symptoms 2 days ago. The patient had a negative troponin and nonischemic EKG making right-sided myocardial infarction less likely; however, the patient will have troponins repeated and will have an EKG repeated in the morning. The patient had Lyme testing in May of this year; however, this will be repeated and TSH will also be tested. The patient will have an echocardiogram to assess his ejection fraction. The patient will be seen in consultation by Dr. Kris Barraza of Cardiology with consideration of pacemaker. The patient will be admitted to the ICU with external pacemaker pads placed on; however, given he is currently stable, the patient is not indicated to have transvenous pacemaker or other more intensive interventions. 2. Heart failure exacerbation. The patient with a history of heart failure with reduced ejection fraction, lowest known ejection fraction 30% to 35% after his coronary artery bypass graft in 2010. We will repeat echocardiogram. The patient will have to be diuresed with furosemide. The patient is unclear whether this is heart failure independent of bradycardia or whether the heart failure is a consequence of the patient's bradycardia. The patient's blood pressure is currently adequate and further aggressive diuresis shall be undertaken. After the patient has a pacemaker placed, if he has a decreased ejection fraction, restarting beta-blockers, LINDA inhibitors, and other heart failure medications may be indicated. The patient is generally very healthy. The patient's antibiotics will be discontinued due to symptoms consistent with heart failure and no white blood cell count, tachycardia, productive cough, fevers, chills, or other signs of infection and a CRP only nominally elevated at 9.71. 3. Coronary artery disease, status post coronary artery bypass graft in 2010. The patient does not seem to be having an active myocardial infarction. The patient will have an echocardiogram as above and repeat troponins as well as repeat electrocardiogram. The patient will be seen in consultation by Dr. Kris Barraza. The patient refuses to take statins or aspirin, so these will not be started at this time. 4. History of cerebrovascular accident. The patient has no neurologic deficits and again, refuses to take statins or aspirin. 5. Atrial fibrillation. The patient is currently on Coumadin and obviously does not need rate control agents. The patient's Coumadin will be held in anticipation of possible pacemaker placement tomorrow. 6. Abdominal aortic aneurysm. Continue outpatient monitoring. This has been stable for several years. 7. FEN. The patient will have a heart-healthy diet without caffeine. The patient is fluid overloaded, will not have fluids. 8. DVT prophylaxis. The patient is currently therapeutic on his Coumadin. Given the need for possible pacemaker, the patient will not be started on warfarin. The patient will have SCDs. The patient does not have a large amount of lower extremity edema and worsening of his pulmonary edema with SCDs is not a concern at this time. 9. Code status. The patient would like to be a DNR. This will be followed upon. TIME SPENT: Approximately 60 minutes were spent on the admission of this patient, 30 of which was spent [id number] with the patient obtaining history and physical and discussing treatment plan. The plan has been discussed with my attending, Dr. Sherri Newby, and she is in agreement. MATT MORAN [id number]/[facility] #: [id number]
--- NOTE | 2018-09-13 17:19 | ECHO ---
Patient: SHAHRAM ADAMSON [facility] Rec#: [id number] : 1935 Date: 09/13/2018 Age: 83y Weight: kg / NaN lbs Sex: M Room#: ICU 4 Admit Date#: 09/13/2018 Type: Inpatient Referring: Freddie García Reading: Kris Barraza MD Camp Housekeeper: Cherie Mckoy RN RDCS CC: Bobo Linn MD Transthoracic Echocardiogram Indication: CHF BP: 172/60 HR: 38 Rhythm: Bradycardia Findings History: CAD, CABG, CHF, RBBB, former smoker, hiatal hernia Technical Comments: The study quality is fair. The study is technically limited due to the patient's smoking history. Left Ventricle: The left ventricular chamber size is normal. Moderate concentric left ventricular hypertrophy is observed. Global left ventricular wall motion and contractility are within normal limits. There is normal left ventricular systolic function. The estimated ejection fraction is 60-65%. Abnormal left ventricular diastolic function is observed. Left Atrium: The left atrium is mildly dilated. Right Ventricle: The right ventricle is mildly dilated. The right ventricular global systolic function is low normal. Right Atrium: The right atrium is mildly dilated. Aortic Valve: The aortic valve structure is not well visualized. The aortic valve leaflets are moderately thickened. Systolic excursion of the aortic valve cusps is reduced. There is no evidence of aortic regurgitation. There is moderate aortic stenosis. The mean gradient of the aortic valve is 19 mmHg. The peak instantaneous gradient of the aortic valve is 38 mmHg. The aortic valve area, by peak velocities, is calculated at 1.1 cm2. The aortic valve area, by VTI's, is calculated at 1.4 cm2. Highest aortic valve velocity was acquired with Pedoff in apical position. Mitral Valve: There is mitral annular calcification. The mitral valve leaflets are moderately thickened. Mitral valve leaflet mobility is mildly restricted. There is mild mitral regurgitation. There is mild mitral stenosis. The mean gradient across the mitral valve is 3.4 mmHg. The peak gradient across the mitral valve is 11.2 mmHg. The pressure half time of the mitral valve is 109 msec. The mitral valve area, by pressure half time, is calculated at 2 cm2. Tricuspid Valve: The tricuspid valve leaflets are normal. There is moderate tricuspid regurgitation. The right ventricular systolic pressure is estimated to be 65-70 mmHg. There is evidence of severe pulmonary hypertension. There is no tricuspid stenosis. Pulmonic Valve: The pulmonic valve structure is not well visualized. There is mild pulmonic regurgitation. Pericardium: There is no significant pericardial effusion. A pericardial fat pad is visualized. Aorta: There is no dilatation of the ascending aorta. The aortic arch is not well visualized. There is no dilation of the aortic root. Pulmonary Artery: The main pulmonary artery is not well visualized. Venous: The inferior vena cava is dilated. There is a greater than 50% respiratory change in the inferior vena cava dimension. Conclusions Moderate concentric left ventricular hypertrophy is observed. Global left ventricular wall motion and contractility are within normal limits. There is normal left ventricular systolic function. The estimated ejection fraction is 60-65%. The right ventricular global systolic function is low normal. Systolic excursion of the aortic valve cusps is reduced. The aortic valve leaflets are moderately thickened. There is moderate aortic stenosis. The mean gradient of the aortic valve is 19 mmHg. The aortic valve area, by peak velocities, is calculated at 1.1 cm2. There is mild mitral regurgitation. There is mild mitral stenosis. The mean gradient across the mitral valve is 3.4 mmHg. There is moderate tricuspid regurgitation. There is evidence of severe pulmonary hypertension. The right ventricular systolic pressure is estimated to be 65-70 mmHg. There is no significant pericardial effusion. Compared to study of 06/03/17, the LV function is the same. The aortic stenosis is worse. the severe pulmonary HTN is new Measurements Name Value Normal Range RVIDd (AP) 2D 2.7 cm (0.9 - 2.6) RVDdMajor (2D) 4.6 cm (2.2 - 4.4) RAd ISD 4CH 5.4 cm (3.4 - 4.9) IVSd (2D) 1.4 cm (0.6 - 1) LVPWd (2D) 1.3 cm (0.6 - 1) LVIDd (2D) 4.3 cm (3.6 - 5.4) LVIDs (2D) 3 cm - LV FS (2D) 30 % (25 - 45) Aortic Annulus 2.1 cm (1.4 - 2.6) Ao root diameter (2D) 3.4 cm (2.1 - 3.5) Ascending Ao 3 cm (2.1 - 3.4) LA dimension (AP) 2D 4.2 cm (2.3 - 3.8) LAd ISD 4CH 5.8 cm (2.9 - 5.3) LA ISD 4CH W 4.5 cm (2.5 - 4.5) Name Value Normal Range LA ESV SP 4CH (A/L) 93 ml - LA ESV SP 2CH (A/L) 72 ml - LA ESV BP (A/L) 82 ml - LA ESV BP (A/L) index 38 ml/m2 - LA ESV SP 4CH (MOD) 88 ml - LA ESV SP 2CH (MOD) 69 ml - Name Value Normal Range MV E-wave Vmax 1.7 m/sec - MV deceleration time 208 msec - LV septal e' Vmax 0.05 m/sec - LV lateral e' Vmax 0.1 m/sec - LV E:e' septal ratio 34 ratio - LV E:e' lateral ratio 17 ratio - Name Value Normal Range AV Vmax 3.1 m/sec - AV VTI 65 cm - AV peak gradient 38 mmHg - AV mean gradient 19 mmHg - LVOT diameter 2.1 cm - LVOT Vmax 1 m/sec - LVOT VTI 26.5 cm - LVOT peak gradient 4.4 mmHg - LVOT mean gradient 2.1 mmHg - DOI (VTI) 0.41 ratio - DOI (Vmax) 0.32 ratio - NYEMAR (continuity Vmax) 1.1 cm2 - NEYMAR (continuity VTI) 1.4 cm2 - Name Value Normal Range MV Vmax 1.7 m/sec - MV VTI 40.6 cm - MV peak gradient 11.2 mmHg - MV mean gradient 3.4 mmHg - MV PHT 109 msec - MVA (PHT) 2 cm2 - MVA (continuity VTI) 2.2 cm2 - Name Value Normal Range TR Vmax 3.8 m/sec - TR peak gradient 58 mmHg - RAP 8 mmHg - RVSP 66 mmHg - IVC diameter 2.4 cm - Name Value Normal Range PV Vmax 1 m/sec -
--- NOTE | 2018-09-13 20:21 | CONS ---
CC: Dr. Bobo Linn at [facility]; Dr. Joseph * CARDIOLOGY CONSULTATION: DATE OF CONSULT: 09/13/18 INDICATION FOR CONSULTATION: Shortness of breath, bradycardia. HISTORY OF PRESENT ILLNESS: The patient is an 83-year-old gentleman with a history of coronary artery disease, history of diastolic dysfunction, history of chronic atrial fibrillation, who has been getting progressive shortness of breath over the last week or so. He was seen by his primary care physician yesterday, at that time he was started on antibiotics. The patient states he just got worsening shortness of breath and came to the emergency room. In the emergency room, he was in congestive heart failure with worsening of his pulmonary consolidation on chest x- ray. Of note, the patient was also found to be severely bradycardic with a right bundle- branch block. The patient has a regular rhythm that appears to be a junctional rhythm with an underlying atrial fibrillation. The patient denied any syncopal episodes. The patient reports increased shortness of breath and orthopnea. He denied any palpitations. He denied any chest pain. He denied any lightheadedness, dizziness, or syncope. PAST MEDICAL HISTORY: Significant for: 1. Heart failure with preserved ejection fraction. 2. Coronary artery disease. 3. Chronic atrial fibrillation. 4. Aortic stenosis. 5. History of gastroesophageal reflux disease. 6. Abdominal aortic aneurysm. 7. TIA. 8. Hypertension. PAST SURGICAL HISTORY: 1. Coronary bypass surgery in 2010. At that time, he had a HORNER to his LAD, saphenous vein graft to OM1, and saphenous vein graft to OM2. 2. He had a cholecystectomy in the past. OUTPATIENT MEDICATIONS: Appears to be only Coumadin. ALLERGIES: To CODEINE. FAMILY HISTORY: Father of coronary artery disease at 90. Mother of natural causes at 97. SOCIAL HISTORY: He lives with his . He is retired. He is a previous smoker. Denies tobacco use. Rare alcohol use. Tries to get regular exercise. REVIEW OF SYSTEMS: Negative for fevers and chills. Positive for shortness of breath. Positive for orthopnea. Negative for change in weight. Negative for changes in bowel or bladder habits. PHYSICAL EXAM: Height is 6 feet 1 inch, weight is 211 pounds, which is up 2 pounds from his office visit in April 2018. Heart rate is 42, blood pressure 127/91, respiratory rate is 19, oxygen saturation 99% on face mask, temperature 98.7. Sclerae anicteric. Oropharynx is pink without erythema. Carotids are 2+ with soft bilateral bruits. JVD is normal. Thyroid is normal. Cardiac Exam: Bradycardic, regular. S1, S2 with 1/6 systolic ejection murmur heard best at the right upper sternal border. PMI is normal. Lungs are clear to auscultation bilaterally. There is mild rhonchi at the right base. There is no dullness to percussion. Abdomen is soft, nontender, and nondistended with normoactive bowel sounds. Extremities show no edema. He has 2 + pulses throughout. The patient is awake, alert, and oriented. He moves all 4 extremities equally. DIAGNOSTIC STUDIES/LAB DATA: Chemistries within normal limits. BUN 30, creatinine 0.9. TSH 3.3. BNP 273. Troponin is minimally elevated at 0.05. AST and ALT are mildly elevated. CBC within normal limits. Echocardiogram shows normal LV size and systolic function, mild to moderate aortic stenosis, moderate tricuspid regurgitation with severe pulmonary hypertension with an estimated PA systolic pressure of 75 mmHg. IMPRESSION AND RECOMMENDATIONS: This is an 83-year-old gentleman who is admitted to the hospital with progressive shortness of breath. His exam is consistent with congestive heart failure, although he only has minimally elevated BNP and his chest x-ray only shows consolidation but no evidence of congestive heart failure. The patient was given Lasix in the emergency room and has had a successful diuresis. He still appears short of breath. The patient has junctional bradycardia at 40 beats per minute in addition to his atrial fibrillation. For now, my recommendation is to continue to diurese. The patient will be started on low-dose LINDA inhibitor if his blood pressure is able to tolerate it. No beta- blockers at this time. The patient will be evaluated for permanent pacemaker tomorrow by Dr. Junior. The patient's INR today is 2.0. [id number]/[facility] #: [id number] [facility]
[2018-09-14 06:23] LABS: ABS Basophils 0.1 10^3/ul (0-0.2); ABS Eosinophils 0.1 10^3/ul (0-0.6); ABS Monocytes 0.6 10^3/ul (0-0.8); ABS Neutrophils 4.4 10^3/ul (1.5-7.7); ABS Nucleated RBC 0 10^3/ul; Eosinophil % 1.1 %; Hematocrit 36 % (42-52); Hemoglobin 12.4 g/dl (14.0-18.0); Lymphocyte % 16.4 %; Mean Corpuscular HGB Conc 34 g/dl (31-36); Mean Corpuscular Hemoglobin 32 pg (27-31); Mean Corpuscular Volume 95 fL (80-94); Mean Platelet Volume 8.8 fL (7.4-10.4); Nucleated Red Blood Cells % 0.1; Platelet Count 172 10^3/ul (150-450); Red Blood Count 3.83 10^6/ul (4.00-5.40); Red Cell Distribution Width 14 % (10.5-15); White Blood Count 6.1 10^3/ul (3.5-10.8)
[2018-09-14 06:27] LABS: INR 1.77 (0.77-1.02)
[2018-09-14 06:34] LABS: BUN/Creatinine Ratio 27.7 (8-20); Calcium 8.6 mg/dL (8.6-10.3); EGFR African American 85.4 (>60); EGFR Non-African American 70.5 (>60); Magnesium 1.9 mg/dL (1.9-2.7)
[2018-09-14] MEDS: Furosemide IV* 10 MG/ML VIAL (40 MG) IV SLOW PU SCH ×2 (08:07→17:43)
--- NOTE | 2018-09-14 09:47 | PN ---
<Odalys Jones - Last Filed: 09/14/18 09:42> Subjective Date of Service: 09/14/18 - junctional bradycardia, AFL, right sided heart failure Interval History: no events last night per nursing staff. patient states breathing has grossly improved he has responded well to diuresis. 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 Medications Active Medications: Acetaminophen (Tylenol Tab*) 650 mg PO Q6H PRN PRN Reason: FEVER/PAIN Furosemide (Lasix Iv*) 40 mg IV SLOW PU 0800,1700 ANTHONY Last Admin: 09/14/18 08:07 Dose: 40 mg Ondansetron HCl (Zofran Inj*) 4 mg IV Q6H PRN PRN Reason: NAUSEA Objective Vital Signs: Temp Pulse Resp BP Pulse Ox 98.8 F 39 22 133/72 97 09/14/18 07:21 09/14/18 09:00 09/14/18 09:00 09/14/18 09:00 09/14/18 09:00 Oxygen Devices in Use Now: None Appearance: NAD A+O x3 cooperative with exam Ears/Nose/Mouth/Throat: NL Teeth, Lips, Gums, Mucous Membranes Moist Neck: Trachea Midline, No Thyroid Enlargement, Masses Respiratory: - - inspiratory wheezes noted in right upper lobe, + diffuse crackles noted with diminished sounds in right lower lobe Abdominal: NL Sounds; No Tenderness; No Distention Extremities: - - + varicose vein noted in RLE. trace pretibial edema. Neurological: Alert and Oriented x 3 Lines/Tubes/Other Access: Clean, Dry and Intact Peripheral IV Laboratory Results: 09/14/18 06:08 09/14/18 06:08 INR (Anticoag Therapy) 1.77 (0.77-1.02) H 09/14/18 06:08 Total Bilirubin 0.50 mg/dL (0.2-1.0) 09/13/18 11:02 AST 58 U/L (13-39) H 09/13/18 11:02 ALT 67 U/L (7-52) H 09/13/18 11:02 Alkaline Phosphatase 101 U/L (34-104) 09/13/18 11:02 B-Natriuretic Peptide 273 pg/mL (<=100) H 09/13/18 11:02 Total Protein 6.9 g/dL (6.4-8.9) 09/13/18 11:02 Albumin 3.6 g/dL (3.2-5.2) 09/13/18 11:02 Globulin 3.3 g/dL (2-4) 09/13/18 11:02 Albumin/Globulin Ratio 1.1 (1-3) 09/13/18 11:02 TSH 3.37 mcIU/mL (0.34-5.60) 09/13/18 11:02 09/13/18 09/13/18 09/13/18 11:02 15:25 17:25 Troponin I 0.03 0.05 H* 0.04 H* Laboratory Results - last 24 hr 09/13/18 09/13/18 09/13/18 10:45 11:02 11:02 WBC 6.1 RBC 4.00 Hgb 12.7 L Hct 39 L MCV 97 H MCH 32 H MCHC 33 RDW 14 Plt Count 182 MPV 8.8 Neut % (Auto) 76.2 Lymph % (Auto) 14.9 [place] % (Auto) 7.9 Eos % (Auto) 0.4 Baso % (Auto) 0.6 Absolute Neuts (auto) 4.6 Absolute Lymphs (auto) 0.9 L Absolute Monos (auto) 0.5 Absolute Eos (auto) 0 Absolute Basos (auto) 0 Absolute Nucleated RBC 0 Nucleated RBC % 0 INR (Anticoag Therapy) 2.00 H D-Dimer, Quantitative < 200 ABG pH 7.39 ABG pCO2 36 ABG pO2 86 ABG HCO3 22.9 ABG O2 Saturation 98.1 H ABG Base Excess -2.6 L Sodium Potassium Chloride Carbon Dioxide Anion Gap BUN Creatinine Est GFR ( Amer) Est GFR (Non-Af Amer) BUN/Creatinine Ratio Glucose Lactic Acid Calcium Magnesium Total Bilirubin AST ALT Alkaline Phosphatase Troponin I C-Reactive Protein B-Natriuretic Peptide Total Protein Albumin Globulin Albumin/Globulin Ratio TSH Influenza A (Rapid) Influenza B (Rapid) 09/13/18 09/13/18 09/13/18 11:02 11:02 11:02 WBC RBC Hgb Hct MCV MCH MCHC RDW Plt Count MPV Neut % (Auto) Lymph % (Auto) [place] % (Auto) Eos % (Auto) Baso % (Auto) Absolute Neuts (auto) Absolute Lymphs (auto) Absolute Monos (auto) Absolute Eos (auto) Absolute Basos (auto) Absolute Nucleated RBC Nucleated RBC % INR (Anticoag Therapy) D-Dimer, Quantitative ABG pH ABG pCO2 ABG pO2 ABG HCO3 ABG O2 Saturation ABG Base Excess Sodium 138 Potassium 4.1 Chloride 106 Carbon Dioxide 27 Anion Gap 5 BUN 30 H Creatinine 0.94 Est GFR ( Amer) 92.7 Est GFR (Non-Af Amer) 76.6 BUN/Creatinine Ratio 31.9 H Glucose 152 H Lactic Acid 1.1 Calcium 8.7 Magnesium Total Bilirubin 0.50 AST 58 H ALT 67 H Alkaline Phosphatase 101 Troponin I 0.03 C-Reactive Protein 9.71 H B-Natriuretic Peptide 273 H Total Protein 6.9 Albumin 3.6 Globulin 3.3 Albumin/Globulin Ratio 1.1 TSH 3.37 Influenza A (Rapid) Influenza B (Rapid) 09/13/18 09/13/18 09/13/18 13:55 15:25 17:25 WBC RBC Hgb Hct MCV MCH MCHC RDW Plt Count MPV Neut % (Auto) Lymph % (Auto) [place] % (Auto) Eos % (Auto) Baso % (Auto) Absolute Neuts (auto) Absolute Lymphs (auto) Absolute Monos (auto) Absolute Eos (auto) Absolute Basos (auto) Absolute Nucleated RBC Nucleated RBC % INR (Anticoag Therapy) D-Dimer, Quantitative ABG pH ABG pCO2 ABG pO2 ABG HCO3 ABG O2 Saturation ABG Base Excess Sodium Potassium Chloride Carbon Dioxide Anion Gap BUN Creatinine Est GFR ( Amer) Est GFR (Non-Af Amer) BUN/Creatinine Ratio Glucose Lactic Acid Calcium Magnesium Total Bilirubin AST ALT Alkaline Phosphatase Troponin I 0.05 H* 0.04 H* C-Reactive Protein B-Natriuretic Peptide Total Protein Albumin Globulin Albumin/Globulin Ratio TSH Influenza A (Rapid) Negative Influenza B (Rapid) Negative 09/14/18 09/14/18 09/14/18 06:08 06:08 06:08 WBC 6.1 RBC 3.83 L Hgb 12.4 L Hct 36 L MCV 95 H MCH 32 H MCHC 34 RDW 14 Plt Count 172 MPV 8.8 Neut % (Auto) 71.8 Lymph % (Auto) 16.4 [place] % (Auto) 9.7 Eos % (Auto) 1.1 Baso % (Auto) 1.0 Absolute Neuts (auto) 4.4 Absolute Lymphs (auto) 1.0 Absolute Monos (auto) 0.6 Absolute Eos (auto) 0.1 Absolute Basos (auto) 0.1 Absolute Nucleated RBC 0 Nucleated RBC % 0.1 INR (Anticoag Therapy) 1.77 H D-Dimer, Quantitative ABG pH ABG pCO2 ABG pO2 ABG HCO3 ABG O2 Saturation ABG Base Excess Sodium 137 Potassium 4.0 Chloride 103 Carbon Dioxide 28 Anion Gap 6 BUN 28 H Creatinine 1.01 Est GFR ( Amer) 85.4 Est GFR (Non-Af Amer) 70.5 BUN/Creatinine Ratio 27.7 H Glucose 137 H Lactic Acid Calcium 8.6 Magnesium 1.9 Total Bilirubin AST ALT Alkaline Phosphatase Troponin I C-Reactive Protein B-Natriuretic Peptide Total Protein Albumin Globulin Albumin/Globulin Ratio TSH Influenza A (Rapid) Influenza B (Rapid) Diagnostic Imaging: Echo 09/13/2018; LVEF 60-65%, mild RV dilatation, severe pulmonary HTN with moderate and mild MS. EKG Data: Telemetry reveiwed. Junctional bradycardia rates 35-40 with underlying AFL 4:1 Assessment/Plan #1 Sudden onset c/o SOB three days ago with hypoxia noted at our clinic. He has new severe pulmonary HTN with mild RV dilatation and troponinemia. He adds that two months ago he noted RLE > LLE swelling he contributed this to his known varicose veins. I spoke with hospitalist who are to r/o PE via CTA chest. He is on coumadin however, prior US abdomen in January 2018 noted thrombus within AAA? #2 Junctional bradycardia; not on AV demetra agents he is hemodynamically stable at this time. Will need eventual PPM tentatively 09/15/2018. #3 Perm AFL with 4:1 conduction; not symptomatic. Chads Vasc>2 given h/o TIA in 2017. Recommend starting IV heparin as a bridge given INR 1.7 today. He has been in AFL since 2017 after review of ekgs. #4 Severe pulmonary HTN with right sided heart failure; PE to be r/o today. responded well to diuresis. RVSP in 2014 on outpatient echo was 34mmHG. #5 Troponinemia; unclear etiology. no has not c/o chest pain. prior anginal equivalent was SOB per patient. He has a h/o CABG in 2010. no WMA noted on echo yesterday. Will start ASA 81/day unclear why he is not on ASA for secondary prevention given prior CABG. no BBlocker due to above #1 however this can be addressed after PPM placed. Unless otherwise contraindicated would recommend moderate dose statin therapy. He had mild transaminities so this can be addressed outpatient. May need eventual ischemic eval will follow. Attending: Kimberly Junior <Kimberly Junior - Last Filed: 09/14/18 16:26> Medications Active Medications: Acetaminophen (Tylenol Tab*) 650 mg PO Q6H PRN PRN Reason: FEVER/PAIN Aspirin (Aspirin 81 Mg Chew Tab*) 81 mg PO DAILY [facility] Last Admin: 09/14/18 10:20 Dose: 81 mg Furosemide (Lasix Iv*) 40 mg IV SLOW PU 0800,1700 [facility] Last Admin: 09/14/18 08:07 Dose: 40 mg Heparin Sodium/Dextrose (Heparin Drip 25,000 Units(*)) 25,000 units in 500 mls @ 0 mls/hr IV PER RATE [facility]; Protocol Last Admin: 09/14/18 13:04 Dose: 28 mls/hr Ondansetron HCl (Zofran Inj*) 4 mg IV Q6H PRN PRN Reason: NAUSEA Objective Vital Signs: Temp Pulse Resp BP Pulse Ox 99 F 45 24 173/71 94 09/14/18 11:31 09/14/18 15:00 09/14/18 15:00 09/14/18 11:01 09/14/18 15:00 Laboratory Results: 09/14/18 06:08 09/14/18 06:08 INR (Anticoag Therapy) 1.77 (0.77-1.02) H 09/14/18 06:08 APTT 40.2 seconds (26.0-36.3) H 09/14/18 12:13 Total Bilirubin 0.50 mg/dL (0.2-1.0) 09/13/18 11:02 AST 58 U/L (13-39) H 09/13/18 11:02 ALT 67 U/L (7-52) H 09/13/18 11:02 Alkaline Phosphatase 101 U/L (34-104) 09/13/18 11:02 B-Natriuretic Peptide 273 pg/mL (<=100) H 09/13/18 11:02 Total Protein 6.9 g/dL (6.4-8.9) 09/13/18 11:02 Albumin 3.6 g/dL (3.2-5.2) 09/13/18 11:02 Globulin 3.3 g/dL (2-4) 09/13/18 11:02 Albumin/Globulin Ratio 1.1 (1-3) 09/13/18 11:02 TSH 3.37 mcIU/mL (0.34-5.60) 09/13/18 11:02 09/13/18 09/13/18 09/13/18 11:02 15:25 17:25 Troponin I 0.03 0.05 H* 0.04 H* Assessment/Plan CT scan shows significant mediastinal lymphadenopathy and lung abnormalities. Granulomatous changes noted. Radiology differential included metastatic disease. My differential includes sarcoid. Patient denies weight loss or fevers, descibed horrible dry cough, and describes "slowing down" 4-6 months. Monitor: Monitor: coarse fib vs flutter with regular bradycardic ventricular response (40 bpm). 6 beat run of MM VT I agree with the above, tentative plan for single chamber pacer Wednesday (unable to schedule ) for bradycardia. For VT and CAD will add beta genevieve, discussed with colleagues, with normal EF even if sarcoid unlikely to need ICD. Will consult pulmonary for abnormal CT, possible bx and I sent an LINDA level off. Curbsided Dr Mukherjee today, no pulmonary reason not to implant device. I differ to hospitalist to f/u on pulmonary w/u, consults. LFT elevation likely related to right heart failure, if so it should improve with dieresis.
[2018-09-14] MEDS: Aspirin 81 mg CHEW TAB* 81 MG TAB.CHEW PO SCH (10:20)
[2018-09-14] MEDS ORDERED: Iohexol 350* (CONTRAST) 500 ML MDV IV ONE (11:27)
[2018-09-14] MEDS ORDERED: Atropine SYRINGE* 0.1 MG/ML 10 ML SYRINGE (1 MG) ONE (11:36)
[2018-09-14] MEDS: Heparin DRIP 25,000 UNITS(*) 25,000 UNITS/500 ML BAG IV SCH (13:04)
[2018-09-14] MEDS ORDERED: ceFAZolin 2 GM PREMIX in ORs 2 GM/50 ML BAG IVPB ONE (16:28)
--- NOTE | 2018-09-14 17:23 | PN ---
Subjective Date of Service: 09/14/18 Interval History: Patient with no complaints. reports shortness of breath is improved while lying bed. Denies chest pain or shortness of breath. Denies abd pain n/v/d. Family History: Unchanged from Admission Social History: Unchanged from Admission Past Medical History: Unchanged from Admission Objective Active Medications: Acetaminophen (Tylenol Tab*) 650 mg PO Q6H PRN PRN Reason: FEVER/PAIN Aspirin (Aspirin 81 Mg Chew Tab*) 81 mg PO DAILY [facility] Last Admin: 09/14/18 10:20 Dose: 81 mg Furosemide (Lasix Iv*) 40 mg IV SLOW PU 0800,1700 [facility] Last Admin: 09/14/18 08:07 Dose: 40 mg Heparin Sodium/Dextrose (Heparin Drip 25,000 Units(*)) 25,000 units in 500 mls @ 0 mls/hr IV PER RATE [facility]; Protocol Last Admin: 09/14/18 13:04 Dose: 28 mls/hr Cefazolin Sodium/Dextrose (Kefzol 2 Gm Premix In Ors(*)) 2 gm in 50 mls @ 100 mls/hr IVPB ONCE ONE Stop: 09/16/18 07:29 Ondansetron HCl (Zofran Inj*) 4 mg IV Q6H PRN PRN Reason: NAUSEA Vital Signs - 8 hr 09/14/18 09/14/18 09/14/18 10:00 11:00 11:01 Temperature Pulse Rate 39 43 41 Respiratory 26 25 17 Rate Blood Pressure 173/71 (mmHg) O2 Sat by Pulse 99 96 98 Oximetry 09/14/18 09/14/18 09/14/18 11:31 12:00 12:09 Temperature 99 F Pulse Rate 39 Respiratory 21 22 Rate Blood Pressure (mmHg) O2 Sat by Pulse 98 Oximetry 09/14/18 09/14/18 09/14/18 13:00 14:00 15:00 Temperature Pulse Rate 40 41 45 Respiratory 22 22 22 Rate Blood Pressure (mmHg) O2 Sat by Pulse 95 91 94 Oximetry 09/14/18 09/14/18 09/14/18 15:24 16:00 16:01 Temperature Pulse Rate 43 44 44 Respiratory 24 18 22 Rate Blood Pressure 170/62 141/62 (mmHg) O2 Sat by Pulse 94 93 92 Oximetry Oxygen Devices in Use Now: None Appearance: elderly male sitting in the bed, no acute distress Eyes: No Scleral Icterus Ears/Nose/Mouth/Throat: NL Teeth, Lips, Gums, Mucous Membranes Moist Neck: NL Appearance and Movements; NL JVP, Trachea Midline Respiratory: Symmetrical Chest Expansion and Respiratory Effort, Clear to Auscultation Cardiovascular: NL Sounds; No Murmurs; No JVD, No Edema Abdominal: NL Sounds; No Tenderness; No Distention Extremities: No Edema, No Clubbing, Cyanosis Skin: No Rash or Ulcers Neurological: Alert and Oriented x 3 Nutrition: Taking PO's Result Diagrams: 09/14/18 06:08 09/14/18 06:08 Microbiology and Other Data: Microbiology 09/13/18 11:10 Aerobic Blood Culture - Preliminary Blood Venous No Growth Day 1 Anaerobic Blood Culture - Preliminary No Growth Day 1 09/13/18 10:57 Aerobic Blood Culture - Preliminary Blood Venous No Growth Day 1 Anaerobic Blood Culture - Preliminary No Growth Day 1 09/13/18 15:25 Nasal Screen MRSA (PCR) - Final Nasal Mrsa Not Detected 09/13/18 13:30 Influenza Types A,B Antigen - Final Nasopharyngeal Specimen received for Influenza A/B Molecular testing Assess/Plan/Problems-Billing Assessment: Mr. Ricci is an 83 y.o male with a pmhx significant for a-fib , cad, chf, hx of cva who presented to the ER with the complaints of shortness of breath. found donna bradycardic at 39 . - Patient Problems (1) CHF (congestive heart failure) Current Visit: Yes Status: Acute Code(s): I50.9 - HEART FAILURE, UNSPECIFIED SNOMED Code(s): 01226014 Comment: Suspect this is related to his bradycardia - will continue with lasix 40 mg daily - strict i/o - daily weights (2) Bradycardia Current Visit: Yes Status: Acute Code(s): R00.1 - BRADYCARDIA, UNSPECIFIED SNOMED Code(s): 01078304 Comment: Cardiology consulted - will go for pacermaker placement on wednesday - heparin drip while coumadin is on hold - will stop heparin drip at midnight on 09/15/2018- for pacemaker implant (3) Pulmonary nodules Current Visit: Yes Status: Acute Code(s): R91.8 - OTHER NONSPECIFIC ABNORMAL FINDING OF LUNG FIELD SNOMED Code(s): 948282568 Comment: - multiple pulmonary nodules - seen on CTA of the chest today - no PE - will consult Dr. Mukherjee - will get Ct- abd/pelvis to r/o metastatic disease (4) History of CVA (cerebrovascular accident) Current Visit: Yes Status: Acute Code(s): Z86.73 - PRSNL HX OF TIA (TIA), AND CEREB INFRC W/O RESID DEFICITS SNOMED Code(s): 649487174 Comment: aspirin 81 mg daily - not currently on statin - coumadin on hold for pacemaker surgery (5) CAD (coronary artery disease) Current Visit: Yes Status: Acute Code(s): I25.10 - ATHSCL HEART DISEASE OF [place] CORONARY ARTERY W/O ANG PCTRS SNOMED Code(s): 73959507 Comment: not on medications - continue aspirin 81 mg - patient with bradycardia - will go for pacemaker on wednesday (6) Elevated troponin Current Visit: Yes Status: Acute Code(s): R74.8 - ABNORMAL LEVELS OF OTHER SERUM ENZYMES SNOMED Code(s): 161281508 Comment: trended down - no chest pain - suspect this is related to demand ischemia d/t chf (7) Atrial fibrillation Current Visit: No Status: Acute Code(s): I48.91 - UNSPECIFIED ATRIAL FIBRILLATION SNOMED Code(s): 57093375 Comment: coumadin on hold- will bridge with heparin drip while waiting for pacemaker - bradycardia - no medications for rate control at home (8) DVT prophylaxis Current Visit: Yes Status: Acute Code(s): TNP7677 - SNOMED Code(s): 034152955 Comment: heparin drip (9) Full code status Current Visit: Yes Status: Acute Code(s): Z78.9 - OTHER SPECIFIED HEALTH STATUS SNOMED Code(s): 760727076
[2018-09-14] MEDS ORDERED: NS 0.9% 500 ML* 500 ML IV ONE (18:18)
[2018-09-14 19:42] LABS: Activated Partial Thrombo Time 63.1 seconds (26.0-36.3); INR 1.6 (0.77-1.02)
[2018-09-15 05:57] LABS: BUN/Creatinine Ratio 32.3 (8-20); Calcium 8.7 mg/dL (8.6-10.3); EGFR African American 93.9 (>60); EGFR Non-African American 77.6 (>60); Potassium 3.8 mmol/L (3.5-5.0)
[2018-09-15 06:33] LABS: Free T4 0.86 ng/dL (0.61-1.12)
[2018-09-15] MEDS: Aspirin 81 mg CHEW TAB* 81 MG TAB.CHEW PO SCH (07:47)
[2018-09-15] MEDS: Benzocaine/Menthol LOZ* 1 LOZENGE PO PRN ×2 (07:47→22:14)
[2018-09-15] MEDS: Furosemide IV* 10 MG/ML VIAL (40 MG) IV SLOW PU SCH (07:47)
[2018-09-15] MEDS: Heparin DRIP 25,000 UNITS(*) 25,000 UNITS/500 ML BAG IV SCH (08:11)
[2018-09-15] MEDS ORDERED: Potassium Chlor TAB* 20 MEQ TAB.ER PO ONE (09:16)
--- NOTE | 2018-09-15 09:27 | PN ---
Subjective Date of Service: 09/15/18 - junctional bradycardia, AFL, right sided heart failure Interval History: no events last night per nursing staff. patient states breathing has grossly improved he has responded well to diuresis he adds breathing is back to baseline. no c/o chest pain, palpitations, dizziness, syncope. He has lost 10lbs since 09/14/2018 Medications Active Medications: Acetaminophen (Tylenol Tab*) 650 mg PO Q6H PRN PRN Reason: FEVER/PAIN Aspirin (Aspirin 81 Mg Chew Tab*) 81 mg PO DAILY [facility] Last Admin: 09/15/18 07:47 Dose: 81 mg Furosemide (Lasix Tab*) 40 mg PO DAILY [facility] Heparin Sodium/Dextrose (Heparin Drip 25,000 Units(*)) 25,000 units in 500 mls @ 0 mls/hr IV PER RATE [facility]; Protocol Last Admin: 09/15/18 08:11 Dose: 24 mls/hr Cefazolin Sodium/Dextrose (Kefzol 2 Gm Premix In Ors(*)) 2 gm in 50 mls @ 100 mls/hr IVPB ONCE ONE Stop: 09/16/18 07:29 Ondansetron HCl (Zofran Inj*) 4 mg IV Q6H PRN PRN Reason: NAUSEA Potassium Chloride (Klor Con Er Tab*) 40 meq PO ONCE ONE Stop: 09/15/18 09:17 Throat Lozenges (Chloraseptic Miri*) 1 miri PO Q3H PRN PRN Reason: SORE THROAT Last Admin: 09/15/18 07:47 Dose: 1 miri Objective Vital Signs: Temp Pulse Resp BP Pulse Ox 97.8 F 41 16 111/60 93 09/15/18 08:00 09/15/18 08:47 09/15/18 08:47 09/15/18 08:47 09/15/18 08:47 Oxygen Devices in Use Now: None Appearance: NAD A+O x3 cooperative with exam Ears/Nose/Mouth/Throat: NL Teeth, Lips, Gums, Mucous Membranes Moist Neck: Trachea Midline, No Thyroid Enlargement, Masses Respiratory: - - inspiratory wheezes noted in right upper lobe, + diffuse crackles noted with diminished sounds in right lower lobe Cardiovascular: - - Kulwinder S1, S2 irregular rate and rhythm. + 3/6 systolic aortic valve murmur, no gallop or rub. Abdominal: NL Sounds; No Tenderness; No Distention Extremities: - - + varicose vein noted in RLE. trace pretibial edema. Neurological: Alert and Oriented x 3 Lines/Tubes/Other Access: Clean, Dry and Intact Peripheral IV Laboratory Results: 09/14/18 06:08 09/15/18 05:31 INR (Anticoag Therapy) 1.60 (0.77-1.02) H 09/14/18 19:20 APTT 88.7 seconds (26.0-36.3) H 09/15/18 01:53 Total Bilirubin 0.50 mg/dL (0.2-1.0) 09/13/18 11:02 AST 58 U/L (13-39) H 09/13/18 11:02 ALT 67 U/L (7-52) H 09/13/18 11:02 Alkaline Phosphatase 101 U/L (34-104) 09/13/18 11:02 B-Natriuretic Peptide 273 pg/mL (<=100) H 09/13/18 11:02 Total Protein 6.9 g/dL (6.4-8.9) 09/13/18 11:02 Albumin 3.6 g/dL (3.2-5.2) 09/13/18 11:02 Globulin 3.3 g/dL (2-4) 09/13/18 11:02 Albumin/Globulin Ratio 1.1 (1-3) 09/13/18 11:02 TSH 3.37 mcIU/mL (0.34-5.60) 09/13/18 11:02 09/13/18 09/13/18 09/13/18 11:02 15:25 17:25 Troponin I 0.03 0.05 H* 0.04 H* Laboratory Last Values WBC 6.1 10^3/ul (3.5-10.8) 09/14/18 06:08 RBC 3.83 10^6/ul (4.00-5.40) L 09/14/18 06:08 Hgb 12.4 g/dl (14.0-18.0) L 09/14/18 06:08 Hct 36 % (42-52) L 09/14/18 06:08 MCV 95 fL (80-94) H 09/14/18 06:08 MCH 32 pg (27-31) H 09/14/18 06:08 MCHC 34 g/dl (31-36) 09/14/18 06:08 RDW 14 % (10.5-15) 09/14/18 06:08 Plt Count 172 10^3/ul (150-450) 09/14/18 06:08 MPV 8.8 fL (7.4-10.4) 09/14/18 06:08 Neut % (Auto) 71.8 % 09/14/18 06:08 Lymph % (Auto) 16.4 % 09/14/18 06:08 [place] % (Auto) 9.7 % 09/14/18 06:08 Eos % (Auto) 1.1 % 09/14/18 06:08 Baso % (Auto) 1.0 % 09/14/18 06:08 Absolute Neuts (auto) 4.4 10^3/ul (1.5-7.7) 09/14/18 06:08 Absolute Lymphs (auto) 1.0 10^3/ul (1.0-4.8) 09/14/18 06:08 Absolute Monos (auto) 0.6 10^3/ul (0-0.8) 09/14/18 06:08 Absolute Eos (auto) 0.1 10^3/ul (0-0.6) 09/14/18 06:08 Absolute Basos (auto) 0.1 10^3/ul (0-0.2) 09/14/18 06:08 Absolute Nucleated RBC 0 10^3/ul 09/14/18 06:08 Nucleated RBC % 0.1 09/14/18 06:08 INR (Anticoag Therapy) 1.60 (0.77-1.02) H 09/14/18 19:20 APTT 88.7 seconds (26.0-36.3) H 09/15/18 01:53 D-Dimer, Quantitative < 200 ng/mL (Less Than 230) 09/13/18 11:02 ABG pH 7.39 (7.35-7.45) 09/13/18 10:45 ABG pCO2 36 mmHg (35-45) 09/13/18 10:45 ABG pO2 86 mmHg (80-100) 09/13/18 10:45 ABG HCO3 22.9 mmol/L (19-31) 09/13/18 10:45 ABG O2 Saturation 98.1 % (94.0-98.0) H 09/13/18 10:45 ABG Base Excess -2.6 mmol/L (-2.0-2.0) L 09/13/18 10:45 Sodium 135 mmol/L (135-145) 09/15/18 05:31 Potassium 3.8 mmol/L (3.5-5.0) 09/15/18 05:31 Chloride 100 mmol/L (101-111) L 09/15/18 05:31 Carbon Dioxide 27 mmol/L (22-32) 09/15/18 05:31 Anion Gap 8 mmol/L (2-11) 09/15/18 05:31 BUN 30 mg/dL (6-24) H 09/15/18 05:31 Creatinine 0.93 mg/dL (0.67-1.17) 09/15/18 05:31 Est GFR ( Amer) 93.9 (>60) 09/15/18 05:31 Est GFR (Non-Af Amer) 77.6 (>60) 09/15/18 05:31 BUN/Creatinine Ratio 32.3 (8-20) H 09/15/18 05:31 Glucose 123 mg/dL (70-100) H 09/15/18 05:31 Lactic Acid 1.1 mmol/L (0.5-2.0) 09/13/18 11:02 Calcium 8.7 mg/dL (8.6-10.3) 09/15/18 05:31 Magnesium 1.9 mg/dL (1.9-2.7) 09/14/18 06:08 Total Bilirubin 0.50 mg/dL (0.2-1.0) 09/13/18 11:02 AST 58 U/L (13-39) H 09/13/18 11:02 ALT 67 U/L (7-52) H 09/13/18 11:02 Alkaline Phosphatase 101 U/L (34-104) 09/13/18 11:02 Troponin I 0.04 ng/mL (<0.04) H* 09/13/18 17:25 C-Reactive Protein 9.71 mg/L (<8.01) H 09/13/18 11:02 B-Natriuretic Peptide 273 pg/mL (<=100) H 09/13/18 11:02 Total Protein 6.9 g/dL (6.4-8.9) 09/13/18 11:02 Albumin 3.6 g/dL (3.2-5.2) 09/13/18 11:02 Globulin 3.3 g/dL (2-4) 09/13/18 11:02 Albumin/Globulin Ratio 1.1 (1-3) 09/13/18 11:02 TSH 3.37 mcIU/mL (0.34-5.60) 09/13/18 11:02 Free T4 0.86 ng/dL (0.61-1.12) 09/15/18 05:31 Influenza A (Rapid) Negative (Negative) 09/13/18 13:55 Influenza B (Rapid) Negative (Negative) 09/13/18 13:55 Diagnostic Imaging: Echo 09/13/2018; LVEF 60-65%, mild RV dilatation, severe pulmonary HTN with moderate and mild MS. EKG Data: Telemetry reviewed. Junctional bradycardia rates 35-40 with underlying AFL 4:1 Assessment/Plan #1 Bradycardia; coarse fib vs flutter with regular bradycardic ventricular response (40 bpm). 6 beat run of MM VT. Plan is PPM 09/16/2018. Will make NPO after midnight. Heparin drip needs to be stopped at 0001 on 09/16/2018. #2 Right sided heart failure; diuresed 10lbs, patient adds breathing is at baseline. Will stop IV diuretics transition to PO lasix 40/day. he appears compensated at this time. could be related to bradycardia however he has severe pulmonary HTN. #3 abnormal CTA chest which revealed significant mediastinal lymphadenopathy with lung abnormalities; await Dr. Mukherjee consult. patient is to have CT abd/ pelvis to r/o metastatic disease today. no evidence of PE on CTA. #4 h/o CAD with prior CABG; denies chest pain. troponin peaked at .05. normal WM on echo. Continue ASA 81/day. He will benefit from Bblocker being initiated after PPM implanted for secondary prevention in addition to NSVT. Statin initiation can be differed until he sees primary heater room helper Dr. Joseph in follow up. mild transaminitis likely due to hepatic congestion from right sided heart failure. #5 Moderate ; mean- 19, peak 38. appears compensated at this time. #6 disposition pending course. plan is PPM 09/16/2018. Attending: Vaughn Joseph
--- NOTE | 2018-09-15 11:04 | CONS ---
PULMONARY CONSULTATION REPORT: DATE OF CONSULT: 09/15/18 CONSULTATION REQUESTED BY: Юлия Ritter NP REASON FOR CONSULT: Evaluation of abnormality CT chest. HISTORY OF PRESENT ILLNESS: The patient is an 83-year-old pleasant male with history of heart failure with no ejection fraction, now normalized; history of coronary artery disease, 3-vessel disease, status post stenting in 2010; history of CVA in May 2017; atrial fibrillation, who presented to the hospital on 09/13/18 for evaluation of worsening shortness of breath. The patient reported significant shortness of breath with minimal exertion, worse when he lies flat. The patient also reported dry cough without much sputum production. The patient also reported wheezing prior to the presentation. He denied fever, chills, nausea, vomiting, abdominal pain or diarrhea. Denies sick contact or recent travel. The patient is generally very active at baseline and had to limit his activates due to significant shortness of breath. He presented to the [facility] care a day prior to ED evaluation for similar complaints, was diagnosed with pneumonia, due to appearance of airspace opacities on the chest x-ray and bradycardia. He refused to be referred to the ED, called his english horn player in the morning and was asked to present to the emergency room. He was found to be significantly hypoxemic, requiring 6 L O2 on presentation; otherwise with O2 sats in low 70s. He was also significantly bradycardic to the 40s. He was also noted to have heart failure and given in the setting of bradycardia, was admitted to the hospital. He was seen by Cardiology and is awaiting pacemaker placement on Wednesday. The patient had CT of the chest for evaluation of pulmonary embolism given this hypoxemia. I personally reviewed CT of the chest in comparison with his prior CT from 2010. No evidence of filling defects in pulmonary arteries. The patient with multiple airspace opacities bilaterally. Patient also with subcentimeter pulmonary nodules bilaterally, some of which are calcified. The patient also with significant mediastinal and hilar adenopathy. The patient with significantly enlarged subcarinal node located towards the left bronchus measuring about 5 cm, which is unchanged from previous CT in 2010. The patient also with multiple subcentimeter pulmonary nodules, the largest measuring 1.1 cm in size. The patient also with bilateral pleural effusions with basal atelectasis. Most of these findings except for the pleural effusion appears to be unchanged since prior CT from 2010. The patient seen and examined at bedside. The patient reports improvement in shortness of breath. The patient is concerned about not being able to get out of the bed. He has pacemaker pads in place. He is bradycardic with heart rates in 30s to 40s. The patient denies any chest pain, palpitations, dizziness at this time. He denies shortness of breath or wheezing. PAST MEDICAL HISTORY: 1. Heart failure with reduced ejection fraction that has improved on most recent echo. 2. Right bundle-branch block. 3. Coronary artery disease. 4. Status post CABG in 2010. 5. CVA. 6. Atrial fibrillation. 7. Abdominal aortic aneurysm. PAST SURGICAL HISTORY: 1. CABG in 2010. 2. Appendectomy in 194. 3. Cholecystectomy in 1991. 4. Hernia repair in 2005. MEDICATIONS: 1. Warfarin. 2. Augmentin. ALLERGIES: CODEINE. FAMILY HISTORY: Reviewed, noncontributory to current complaint. SOCIAL HISTORY: The patient smoked for about 20 years, quit many years ago. No alcohol or illicit drug abuse. 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 REVIEW OF SYSTEMS: All 14-systems reviewed and as per HPI. PHYSICAL EXAM: Elderly male, in bed, no apparent distress. Vital Signs: Temperature 97.9, pulse 38 beats per minute, respiratory rate 17 to 23 per minute, O2 sat 97% on room air, blood pressure 122/60. HEENT: Pupils equal, reactive to light. Mucous membranes moist. Lungs: Good air entry bilaterally. Decreased at bases. Cardiovascular: S1, S2 present, bradycardic. Abdomen: Soft, nontender, nondistended. Bowel sounds present. Extremities: Normal range of motion, no edema. Neuro: Alert, awake, oriented x3. No focal deficits. DIAGNOSTIC STUDIES/LAB DATA: WBC count 6.1, hemoglobin 12.4, hematocrit 36, platelet count 172. ABG pH 7.39, pCO2 36, pO2 86, bicarb 22. Sodium 135, potassium 3.8, chloride 100, bicarb 27, BUN 30, creatinine 0.93. Troponins mildly elevated, trending down. BNP 273. Free T4 within normal limits. Influenza A and B within normal limits. CTA of the chest as described above in HPI. Echocardiogram showed moderate concentric LV hypertrophy with ejection fraction of 60% to 65%, decreased right ventricular systolic function. Aortic leaflets are thickened with moderate stenosis. Evidence of severe pulmonary hypertension with RVSP of 65 to 70, no pericardial effusion. In comparison with prior echo, there is worsening of aortic stenosis and severe pulmonary hypertension noted. IMPRESSION AND RECOMMENDATIONS: 83-year-old male with prior occupational exposure to dust, asbestos; with history of mediastinal and hilar adenopathy; pulmonary nodules, admitted with worsening with shortness of breath secondary to right heart failure, also with new subcentimeter pulmonary nodules bilaterally and pleural effusions. 1. Pulmonary nodules and enlarged mediastinal and hilar nodes suspicious for sarcoidosis, less likely to be lymphoma or metastatic disease or primary lung cancer. 2. Significant bradycardia likely secondary to infiltrative disease involving the heart. 3. Right heart failure resulting in hypoxemic respiratory failure, improved with diuresis. The patient's O2 sats improved, denies dyspnea at this time. CT findings highly concerning for sarcoidosis. Last CT from 2013 showed similar appearance , suggestive of granulomatous disease. 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 Also suspect cardiac issues secondary to sarcoidosis involvement of the heart. The patient is scheduled to have pacemaker placement tomorrow. 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 Will schedule the patient for a bronchoscopy and EBUS-guided lymph node biopsy when stable to obtain diagnosis. He would definitely need treatment for sarcoidosis once confirmed since it is involving the heart and also there is significant involvement of the lungs at this time. LINDA level was sent by Cardiology which is pending. Will schedule the procedure as outpatient. The patient can be discharged from pulmonary perspective when stable after the cardiac issue has been resolved. Thank you for allowing me to participate in the care of your patient. Will follow up with you. [id number]/CPS #: [id number]
[2018-09-15] MEDS ORDERED: Iodixanol* (CONTRAST) 320 MG/ML 100 ML SDV SCH (13:37)
[2018-09-15] MEDS ORDERED: NS 0.9% 500 ML* 500 ML IV ONE (14:56)
--- NOTE | 2018-09-15 18:38 | PN ---
Subjective Date of Service: 09/15/18 Interval History: patient with no complaints , resting in bed, no acute distress. denies chest pain or shortness of breath. Denies abd pain n/v/d. denies fever or chills. HR remains 39. will go for pacemaker placement tomorrow. Family History: Unchanged from Admission Social History: Unchanged from Admission Past Medical History: Unchanged from Admission Objective Active Medications: Acetaminophen (Tylenol Tab*) 650 mg PO Q6H PRN PRN Reason: FEVER/PAIN Aspirin (Aspirin 81 Mg Chew Tab*) 81 mg PO DAILY [facility] Last Admin: 09/15/18 07:47 Dose: 81 mg Furosemide (Lasix Tab*) 40 mg PO DAILY [facility] Heparin Sodium/Dextrose (Heparin Drip 25,000 Units(*)) 25,000 units in 500 mls @ 0 mls/hr IV PER RATE [facility]; Protocol Last Admin: 09/15/18 08:11 Dose: 24 mls/hr Cefazolin Sodium/Dextrose (Kefzol 2 Gm Premix In Ors(*)) 2 gm in 50 mls @ 100 mls/hr IVPB ONCE ONE Stop: 09/16/18 07:29 Sodium Chloride (Ns 0.9% 500 Ml*) 500 mls @ 40 mls/hr IV ONCE ONE Stop: 09/16/18 03:25 Last Admin: 09/15/18 16:31 Dose: 40 mls/hr Iodixanol (Visipaque* 320 (Contrast)) 100 ml .SEE ORDER ONCE [facility] Stop: 09/17/18 13:36 Last Admin: 09/15/18 13:56 Dose: 100 ml Ondansetron HCl (Zofran Inj*) 4 mg IV Q6H PRN PRN Reason: NAUSEA Throat Lozenges (Chloraseptic Miri*) 1 miri PO Q3H PRN PRN Reason: SORE THROAT Last Admin: 09/15/18 07:47 Dose: 1 miri Vital Signs - 8 hr 09/15/18 09/15/18 09/15/18 10:44 11:00 11:01 Temperature Pulse Rate 44 43 43 Respiratory 23 19 21 Rate Blood Pressure 136/63 137/59 (mmHg) O2 Sat by Pulse 96 90 95 Oximetry 09/15/18 09/15/18 09/15/18 12:00 12:01 13:00 Temperature 98 F Pulse Rate 41 41 39 Respiratory 20 20 19 Rate Blood Pressure 134/61 150/62 (mmHg) O2 Sat by Pulse 96 94 Oximetry 09/15/18 09/15/18 09/15/18 14:00 14:08 15:00 Temperature Pulse Rate 41 41 Respiratory 23 16 18 Rate Blood Pressure (mmHg) O2 Sat by Pulse 96 95 Oximetry 09/15/18 09/15/18 09/15/18 15:56 16:00 16:01 Temperature 97.3 F Pulse Rate 41 40 41 Respiratory 22 16 21 Rate Blood Pressure 150/63 147/51 (mmHg) O2 Sat by Pulse 97 95 94 Oximetry 09/15/18 09/15/18 09/15/18 16:31 17:00 17:01 Temperature Pulse Rate 41 41 Respiratory 22 22 23 Rate Blood Pressure 134/52 (mmHg) O2 Sat by Pulse 93 92 Oximetry 09/15/18 09/15/18 18:00 18:01 Temperature Pulse Rate 41 41 Respiratory 16 14 Rate Blood Pressure 140/53 (mmHg) O2 Sat by Pulse 94 90 Oximetry Oxygen Devices in Use Now: None Appearance: alert and oreinted x 3 , no acute distress Eyes: No Scleral Icterus Ears/Nose/Mouth/Throat: Clear Oropharnyx, Mucous Membranes Moist Neck: NL Appearance and Movements; NL JVP, Trachea Midline Respiratory: Symmetrical Chest Expansion and Respiratory Effort, Clear to Auscultation, - - diminished in the bases bilat Cardiovascular: NL Sounds; No Murmurs; No JVD, No Edema, - - bradycardic Abdominal: NL Sounds; No Tenderness; No Distention Extremities: No Edema, No Clubbing, Cyanosis Skin: No Rash or Ulcers Neurological: Alert and Oriented x 3 Nutrition: Taking PO's Result Diagrams: 09/14/18 06:08 09/15/18 05:31 Microbiology and Other Data: Microbiology 09/13/18 11:10 Aerobic Blood Culture - Preliminary Blood Venous No Growth Day 1 Anaerobic Blood Culture - Preliminary No Growth Day 1 09/13/18 10:57 Aerobic Blood Culture - Preliminary Blood Venous No Growth Day 1 Anaerobic Blood Culture - Preliminary No Growth Day 1 09/13/18 15:25 Nasal Screen MRSA (PCR) - Final Nasal Mrsa Not Detected 09/13/18 13:30 Influenza Types A,B Antigen - Final Nasopharyngeal Specimen received for Influenza A/B Molecular testing Assess/Plan/Problems-Billing Assessment: Mr. Ricci is an 83 y.o male with a pmhx significant for a-fib , cad, chf, hx of cva who presented to the ER with the complaints of shortness of breath. found donna bradycardic at 39 . - Patient Problems (1) CHF (congestive heart failure) Current Visit: Yes Status: Acute Code(s): I50.9 - HEART FAILURE, UNSPECIFIED SNOMED Code(s): 92654568 Comment: Suspect this is related to his bradycardia - will change lasix to 40 mg po daily - strict i/o - daily weights (2) Bradycardia Current Visit: Yes Status: Acute Code(s): R00.1 - BRADYCARDIA, UNSPECIFIED SNOMED Code(s): 08955793 Comment: Cardiology consulted - will go for pacermaker placement on wednesday - heparin drip while coumadin is on hold - will stop heparin drip at midnight on 09/15/2018- for pacemaker implant - NPO after midnight (3) Pulmonary nodules Current Visit: Yes Status: Acute Code(s): R91.8 - OTHER NONSPECIFIC ABNORMAL FINDING OF LUNG FIELD SNOMED Code(s): 071323173 Comment: - multiple pulmonary nodules - seen on CTA of the chest today - no PE - will consult Dr. Mukherjee - will schedule for outpatient bronch as outpatient - will get Ct- abd/pelvis to r/o metastatic disease - no lesions in the abd - AAA 3.3 cm slightly larger (4) History of CVA (cerebrovascular accident) Current Visit: Yes Status: Acute Code(s): Z86.73 - PRSNL HX OF TIA (TIA), AND CEREB INFRC W/O RESID DEFICITS SNOMED Code(s): 969336526 Comment: aspirin 81 mg daily - not currently on statin - coumadin on hold for pacemaker surgery (5) CAD (coronary artery disease) Current Visit: Yes Status: Acute Code(s): I25.10 - ATHSCL HEART DISEASE OF [place] CORONARY ARTERY W/O ANG PCTRS SNOMED Code(s): 30802432 Comment: not on medications - continue aspirin 81 mg - patient with bradycardia - will go for pacemaker on wednesday (6) Elevated troponin Current Visit: Yes Status: Acute Code(s): R74.8 - ABNORMAL LEVELS OF OTHER SERUM ENZYMES SNOMED Code(s): 731962216 Comment: trended down - no chest pain - suspect this is related to demand ischemia d/t chf (7) Atrial fibrillation Current Visit: No Status: Acute Code(s): I48.91 - UNSPECIFIED ATRIAL FIBRILLATION SNOMED Code(s): 72036712 Comment: coumadin on hold- will bridge with heparin drip while waiting for pacemaker - bradycardia - no medications for rate control at home (8) DVT prophylaxis Current Visit: Yes Status: Acute Code(s): UGP0311 - SNOMED Code(s): 481667871 Comment: heparin drip (9) Full code status Current Visit: Yes Status: Acute Code(s): Z78.9 - OTHER SPECIFIED HEALTH STATUS SNOMED Code(s): 999882868
[2018-09-16 05:33] LABS: Hematocrit 38 % (42-52); Hemoglobin 12.9 g/dl (14.0-18.0); Mean Corpuscular HGB Conc 34 g/dl (31-36); Mean Corpuscular Hemoglobin 32 pg (27-31); Mean Corpuscular Volume 96 fL (80-94); Mean Platelet Volume 8.5 fL (7.4-10.4); Platelet Count 171 10^3/ul (150-450); Red Blood Count 3.98 10^6/ul (4.00-5.40); Red Cell Distribution Width 14 % (10.5-15); White Blood Count 6.4 10^3/ul (3.5-10.8)
[2018-09-16 05:40] LABS: INR 1.12 (0.77-1.02)
[2018-09-16 05:48] LABS: BUN/Creatinine Ratio 31.9 (8-20); Calcium 8.7 mg/dL (8.6-10.3); EGFR African American 92.7 (>60); EGFR Non-African American 76.6 (>60); Potassium 4.1 mmol/L (3.5-5.0)
[2018-09-16] MEDS ORDERED: Lidocaine 1% INJ* 10 MG/ML 30 ML SDV ONE ×2 (06:39→06:57)
[2018-09-16] MEDS ORDERED: fentaNYL* 50 MCG/ML 2 ML VIAL (100 MCG VIAL) ONE (06:57)
[2018-09-16] MEDS ORDERED: Midazolam* 1 MG/ML 5 ML VIAL (5 MG) ONE (06:57)
[2018-09-16] MEDS ORDERED: ceFAZolin 2 GM PREMIX in ORs 2 GM/50 ML BAG IVPB ONE (07:00)
[2018-09-16] MEDS ORDERED: Iohexol 300* (CONTRAST) 10 ML SDV ONE (07:23)
--- NOTE | 2018-09-16 08:15 | PN ---
Cardiology Progress Note Date of Service: 09/16/18 - CC: SOB SOB improved s/p dieresis. Single chamber pacer implanted this AM, MRI compatible system. Lower rate 60 bpm. No complications.
[2018-09-16] MEDS: Aspirin 81 mg CHEW TAB* 81 MG TAB.CHEW PO SCH (09:53)
[2018-09-16] MEDS: Furosemide TAB* 40 MG PO SCH (09:53)
--- NOTE | 2018-09-16 10:51 | PN ---
Subjective Date of Service: 09/16/18 - s/p PPM implant Interval History: no events last night per nursing staff. patient offers no complaints at this time. He is s/p PPM implant this morning with Dr. Junior. He is resting in chair comfortably at this time. Denies chest pain, sob, dizziness. Medications Active Medications: Acetaminophen (Tylenol Tab*) 650 mg PO Q6H PRN PRN Reason: FEVER/PAIN Aspirin (Aspirin 81 Mg Chew Tab*) 81 mg PO DAILY [facility] Last Admin: 09/16/18 09:53 Dose: 81 mg Furosemide (Lasix Tab*) 40 mg PO DAILY [facility] Last Admin: 09/16/18 09:53 Dose: 40 mg Heparin Sodium/Dextrose (Heparin Drip 25,000 Units(*)) 25,000 units in 500 mls @ 0 mls/hr IV PER RATE [facility]; Protocol Last Admin: 09/15/18 08:11 Dose: 24 mls/hr Cefazolin Sodium 1 gm/ Sodium (Chloride) 50 mls @ 200 mls/hr IVPB Q8HR [facility] Stop: 09/17/18 06:14 Iodixanol (Visipaque* 320 (Contrast)) 100 ml .SEE ORDER ONCE [facility] Stop: 09/17/18 13:36 Last Admin: 09/15/18 13:56 Dose: 100 ml Ondansetron HCl (Zofran Inj*) 4 mg IV Q6H PRN PRN Reason: NAUSEA Throat Lozenges (Chloraseptic Miri*) 1 miri PO Q3H PRN PRN Reason: SORE THROAT Last Admin: 09/15/18 22:14 Dose: 1 miri Objective Vital Signs: Temp Pulse Resp BP Pulse Ox 97.4 F 60 21 124/63 93 09/16/18 03:55 09/16/18 10:06 09/16/18 10:06 09/16/18 10:06 09/16/18 10:06 Oxygen Devices in Use Now: OxyMask Appearance: NAD A+O x3 cooperative with exam Ears/Nose/Mouth/Throat: NL Teeth, Lips, Gums, Mucous Membranes Moist Neck: Trachea Midline, No Thyroid Enlargement, Masses Respiratory: - - CTA non labored. Cardiovascular: - - Normal S1. S2 RRR, 3/6 systolic AV murmur Abdominal: NL Sounds; No Tenderness; No Distention Extremities: - - + varicose vein noted in RLE. trace pretibial edema. Skin: - - left anterior chest PPM device site has dressing in place, no blood noted on dressing. Neurological: Alert and Oriented x 3 Lines/Tubes/Other Access: Clean, Dry and Intact Peripheral IV Laboratory Results: 09/16/18 05:23 09/16/18 05:23 INR (Anticoag Therapy) 1.12 (0.77-1.02) H 09/16/18 05:23 APTT 48.9 seconds (26.0-36.3) H 09/15/18 16:55 Total Bilirubin 0.50 mg/dL (0.2-1.0) 09/13/18 11:02 AST 58 U/L (13-39) H 09/13/18 11:02 ALT 67 U/L (7-52) H 09/13/18 11:02 Alkaline Phosphatase 101 U/L (34-104) 09/13/18 11:02 B-Natriuretic Peptide 273 pg/mL (<=100) H 09/13/18 11:02 Total Protein 6.9 g/dL (6.4-8.9) 09/13/18 11:02 Albumin 3.6 g/dL (3.2-5.2) 09/13/18 11:02 Globulin 3.3 g/dL (2-4) 09/13/18 11:02 Albumin/Globulin Ratio 1.1 (1-3) 09/13/18 11:02 TSH 3.37 mcIU/mL (0.34-5.60) 09/13/18 11:02 09/13/18 09/13/18 09/13/18 11:02 15:25 17:25 Troponin I 0.03 0.05 H* 0.04 H* Laboratory Results - last 24 hr 09/13/18 09/15/18 09/16/18 11:02 16:55 05:23 WBC 6.4 RBC 3.98 L Hgb 12.9 L Hct 38 L MCV 96 H MCH 32 H MCHC 34 RDW 14 Plt Count 171 MPV 8.5 INR (Anticoag Therapy) APTT 48.9 H Sodium Potassium Chloride Carbon Dioxide Anion Gap BUN Creatinine Est GFR ( Amer) Est GFR (Non-Af Amer) BUN/Creatinine Ratio Glucose Calcium Lyme Disease Serology Negative 09/16/18 09/16/18 05:23 05:23 WBC RBC Hgb Hct MCV MCH MCHC RDW Plt Count MPV INR (Anticoag Therapy) 1.12 H APTT Sodium 134 L Potassium 4.1 Chloride 102 Carbon Dioxide 27 Anion Gap 5 BUN 30 H Creatinine 0.94 Est GFR ( Amer) 92.7 Est GFR (Non-Af Amer) 76.6 BUN/Creatinine Ratio 31.9 H Glucose 111 H Calcium 8.7 Lyme Disease Serology Diagnostic Imaging: Echo 09/13/2018; LVEF 60-65%, mild RV dilatation, severe pulmonary HTN with moderate and mild MS. EKG Data: Telemetry reviewed V-Paced rate 60 with underlying AFL Assessment/Plan #1 Bradycardia; coarse fib vs flutter with regular bradycardic ventricular response (40 bpm).s/p PPM implant by Dr. Junior this morning. He is to keep incision clean dry and intact for two weeks. He can not shower for 48 hours. He is to not lift left arm over head x 8 weeks, do not lift left arm above shoulder for 2 weeks. wear arm sling at night and during the day if he has trouble remembering left arm restrictions. no driving until directed by cardiology in follow up. He has a follow up appointment on 09/23/2018 at [facility] office with Oly Keenan [employer] at 2:15pm. We will address guille being removed at that time. He will need to be discharged home on Keflex 250mg PO TID x3 days with no refills. No heavy lifting with left arm until further directed. device is to be interrogated tomorrow morning and patient is to have CXR 09/18 as well. Will follow. #2 Right sided heart failure; diuresed 10lbs, patient adds breathing is at baseline. Tolerating PO lasix 40/day. he appears compensated at this time. would recommend outpatient BMP in one week to follow renal function given initiation of diuretics. #3 abnormal CTA chest which revealed significant mediastinal lymphadenopathy with lung abnormalities; Dr. Mukherjee evaluated the patient in consultation. LINDA level pending, he is to f/u with Dr. Mukherjee for outpatient bronchoscopy. ? sarcoidosis vs metastatic process. #4 h/o CAD with prior CABG; denies chest pain. troponin peaked at .05. normal WM on echo. Continue ASA 81/day. He will benefit from Bblocker being initiated after PPM implanted for secondary prevention in addition to NSVT. Statin initiation can be differed until he sees primary acidizer Dr. Joseph in follow up. mild transaminitis likely due to hepatic congestion from right sided heart failure. #5 Moderate ; mean- 19, peak 38. appears compensated at this time. #6 Afib/Flutter; Chads Vasc-6 historically on coumadin with h/o TIA. Given he is s/p PPM implant would re start OAC tonight at 11pm, however would start lovenox given he needs OAC interrupted for upcoming bronchoscopy on 09/28/2018 1: 30pm with Dr. Mukherjee. After bronchoscopy coumadin re initiation can be addressed however he will need bridge until INR therapeutic given h/o TIA. He will need teaching for subcutaneous injection prior to discharge. I personally spoke with Юлия Dunham who is the covering hospitalist who is aware of plan of care for OAC and will manage. #6 disposition pending course. D/w Dr. Joseph who agrees with plan of care. Attending: Vaughn Joseph
[2018-09-16] MEDS: ceFAZolin 1 GM VIAL(*) 1 GM in NS 0.9% 50 ML* 50 ML IVPB SCH (13:26)
[2018-09-16 15:51] VITALS: BP 122/93
--- NOTE | 2018-09-16 20:21 | PN ---
Subjective Date of Service: 09/16/18 Interval History: Patient reports that he is feeling well, denies chest pain or shortness of breath. Denies abd pain n/v/d. Family History: Unchanged from Admission Social History: Unchanged from Admission Past Medical History: Unchanged from Admission Objective Active Medications: Acetaminophen (Tylenol Tab*) 650 mg PO Q6H PRN PRN Reason: FEVER/PAIN Apixaban (Eliquis*) 5 mg PO BID [facility] Aspirin (Aspirin 81 Mg Chew Tab*) 81 mg PO DAILY [facility] Last Admin: 09/16/18 09:53 Dose: 81 mg Furosemide (Lasix Tab*) 40 mg PO DAILY [facility] Last Admin: 09/16/18 09:53 Dose: 40 mg Cefazolin Sodium 1 gm/ Sodium (Chloride) 50 mls @ 200 mls/hr IVPB Q8H [facility] Stop: 09/17/18 06:14 Ondansetron HCl (Zofran Inj*) 4 mg IV Q6H PRN PRN Reason: NAUSEA Throat Lozenges (Chloraseptic Miri*) 1 miri PO Q3H PRN PRN Reason: SORE THROAT Last Admin: 09/15/18 22:14 Dose: 1 miri Vital Signs - 8 hr 09/16/18 09/16/18 09/16/18 13:00 13:26 14:00 Temperature Pulse Rate 59 60 61 Respiratory 25 16 23 Rate Blood Pressure 129/70 141/65 (mmHg) O2 Sat by Pulse 95 95 95 Oximetry 09/16/18 09/16/18 09/16/18 14:01 15:37 15:41 Temperature 97 F Pulse Rate 61 59 Respiratory 25 16 Rate Blood Pressure 122/93 (mmHg) O2 Sat by Pulse 95 98 98 Oximetry 09/16/18 19:00 Temperature Pulse Rate Respiratory Rate Blood Pressure (mmHg) O2 Sat by Pulse 98 Oximetry Oxygen Devices in Use Now: None Eyes: No Scleral Icterus Ears/Nose/Mouth/Throat: Clear Oropharnyx, Mucous Membranes Moist Neck: NL Appearance and Movements; NL JVP Respiratory: Symmetrical Chest Expansion and Respiratory Effort, Clear to Auscultation, Clear to Palpation Cardiovascular: NL Sounds; No Murmurs; No JVD, No Edema Abdominal: NL Sounds; No Tenderness; No Distention Extremities: No Edema, No Clubbing, Cyanosis Skin: No Rash or Ulcers Neurological: Alert and Oriented x 3 Nutrition: Taking PO's Result Diagrams: 09/16/18 05:23 09/16/18 05:23 Microbiology and Other Data: Microbiology 09/13/18 11:10 Aerobic Blood Culture - Preliminary Blood Venous No Growth Day 1 Anaerobic Blood Culture - Preliminary No Growth Day 1 09/13/18 10:57 Aerobic Blood Culture - Preliminary Blood Venous No Growth Day 1 Anaerobic Blood Culture - Preliminary No Growth Day 1 09/13/18 15:25 Nasal Screen MRSA (PCR) - Final Nasal Mrsa Not Detected 09/13/18 13:30 Influenza Types A,B Antigen - Final Nasopharyngeal Specimen received for Influenza A/B Molecular testing Assess/Plan/Problems-Billing Assessment: Mr. Ricci is an 83 y.o male with a pmhx significant for a-fib , cad, chf, hx of cva who presented to the ER with the complaints of shortness of breath. found donna bradycardic at 39 . - Patient Problems (1) CHF (congestive heart failure) Current Visit: Yes Status: Acute Code(s): I50.9 - HEART FAILURE, UNSPECIFIED SNOMED Code(s): 54869601 Comment: Suspect this is related to his bradycardia - will continue lasix to 40 mg po daily - strict i/o - daily weights - will need repeat bmp in 1 week after discharge (2) Bradycardia Current Visit: Yes Status: Acute Code(s): R00.1 - BRADYCARDIA, UNSPECIFIED SNOMED Code(s): 13538355 Comment: Cardiology consulted - pacermaker placement on wednesday completed - will need chest x ray in the AM, pacer check and cardiology follow up before discharge - can start eliquis tonight at 2300 per cardiology - follow up with cardiology on 09/23/18 at 215 pm for staple removal (3) Pulmonary nodules Current Visit: Yes Status: Acute Code(s): R91.8 - OTHER NONSPECIFIC ABNORMAL FINDING OF LUNG FIELD SNOMED Code(s): 314249440 Comment: - multiple pulmonary nodules - seen on CTA of the chest today - no PE - will consult Dr. Mukherjee - will schedule for outpatient bronch as outpatient - will get Ct- abd/pelvis to r/o metastatic disease - no lesions in the abd - AAA 3.3 cm slightly larger (4) History of CVA (cerebrovascular accident) Current Visit: Yes Status: Acute Code(s): Z86.73 - PRSNL HX OF TIA (TIA), AND CEREB INFRC W/O RESID DEFICITS SNOMED Code(s): 358555033 Comment: aspirin 81 mg daily - not currently on statin - coumadin on hold for pacemaker surgery (5) CAD (coronary artery disease) Current Visit: Yes Status: Acute Code(s): I25.10 - ATHSCL HEART DISEASE OF [place] CORONARY ARTERY W/O ANG PCTRS SNOMED Code(s): 49198564 Comment: not on medications - continue aspirin 81 mg - patient with bradycardia - will go for pacemaker on wednesday (6) Elevated troponin Current Visit: Yes Status: Acute Code(s): R74.8 - ABNORMAL LEVELS OF OTHER SERUM ENZYMES SNOMED Code(s): 760800215 Comment: trended down - no chest pain - suspect this is related to demand ischemia d/t chf (7) Atrial fibrillation Current Visit: No Status: Acute Code(s): I48.91 - UNSPECIFIED ATRIAL FIBRILLATION SNOMED Code(s): 67862532 Comment: Pacemaker placed today - will switch coumadin to eliquis as patient will need to have bronch with Dr. Mukherjee in a few weeks - bradycardia - no medications for rate control at home (8) DVT prophylaxis Current Visit: Yes Status: Acute Code(s): JBN8243 - SNOMED Code(s): 637222214 Comment: will start eliquis tonight at 2300 - anticoagulation needed to be held after pacemaker until 2300 (9) Full code status Current Visit: Yes Status: Acute Code(s): Z78.9 - OTHER SPECIFIED HEALTH STATUS SNOMED Code(s): 736369624 Status and Disposition: discharge home tomorrow - if medically stable
[2018-09-16] MEDS ORDERED: Apixaban* 5 MG TAB PO SCH (21:00)
--- NOTE | 2018-09-16 22:09 | OP ---
CC: Dr. Joseph OPERATIVE REPORT: DATE OF OPERATION: 09/16/18 DATE OF : 35 SURGEON: Dr. Kimberly Junior. PRE-OP DIAGNOSIS: Chronic atrial fibrillation with symptomatic bradycardia. POST-OP DIAGNOSIS: Chronic atrial fibrillation with symptomatic bradycardia. OPERATIVE PROCEDURE: Single-chamber pacemaker implantation. ESTIMATED BLOOD LOSS: Less than 5 cc. COMPLICATIONS: None. DESCRIPTION OF PROCEDURE: The indications, risks, and benefits of the procedure had been discussed w ith the patient and with his family and he is amenable to proceeding. The patient is right-handed and the left subclavian fossa was prepped and draped in the usual sterile fashion. Following this, a time-out procedure was called. Following this, the patient received a to margareth of 3 mg of Versed and 37.5 mcg of fentanyl for sedation in addition to local lidocaine for anesth esia. 10 cc of radiopaque dye was then injected in the left upper extremity outlining the left subcl hai and left axillary vein. Following this and his local anesthesia, using a 10-blade knife, a 2.5 cm incision was made in the left subclavian fossa extending to the level of the pectoralis muscle. Additional lidocaine was infused inferiorly and medially and using blunt dissection, a small pocket w as fashioned. Using a modified Seldinger technique, the left subclavian vein was cannulated and using fluoroscopic guidance, was guided into the right atrium. An introducer was placed, but I was unable to extend the lead as it was hung up in the vein, so we then exchanged to a longer sheath and guided the lead into the right atrium. The lead was then guided into the right ventricular apex and actively fixed in pl garrison. Pacing and sensing thresholds were checked and found to be good. The lead was then attached to the generator. The pocket was copiously irrigated. The generator was placed in the pocket. The inc ision was closed using 2 layers of resorbable suture, 2-0 followed by 4-0 followed by guille and ext ernal dressing. FINDINGS: The system is an MRI compatible system. The device is a [employer] Model W3SR01 serial #[id number]. The lead is a [employer] Model 5076-58 ser ial #[id number]. R-waves were initially found at 13.1 millivolts, initial lead impedance of 979 ohms and a ventricular pacing threshold of 1 volt at 0.5 milliseconds. The patient was programed in VVI 60 beats per minute. He rapidly became close to pacer dependent wit h his escape rhythm down in the 20s. The patient was hemodynamically stable throughout the procedure and on transfer to the floor. There were no complications. [id number]/[facility] #: [id number]
[2018-09-16] MEDS: ceFAZolin 1 GM* X 2 DOSES POST-OP Q8H (AddVan) IVPB SCH ×2 (22:20)
[2018-09-16] MEDS: Apixaban* 5 MG TAB PO SCH (22:25)
[2018-09-17 05:31] LABS: BUN/Creatinine Ratio 28.4 (8-20); Calcium 8.8 mg/dL (8.6-10.3); EGFR African American 100.1 (>60); EGFR Non-African American 82.7 (>60)
[2018-09-17] MEDS: ceFAZolin 1 GM VIAL(*) 1 GM in NS 0.9% 50 ML* 50 ML IVPB SCH (06:15)
[2018-09-17] MEDS: ceFAZolin 1 GM* X 2 DOSES POST-OP Q8H (AddVan) IVPB SCH ×2 (07:51)
[2018-09-17] MEDS: Furosemide TAB* 40 MG PO SCH (08:31)
[2018-09-17] MEDS: Aspirin 81 mg CHEW TAB* 81 MG TAB.CHEW PO SCH (08:31)
[2018-09-17] MEDS: Apixaban* 5 MG TAB PO SCH (08:31)
[2018-09-17] MEDS ORDERED: Apixaban* 5 MG TAB PO SCH ×2 (09:00→21:00)
--- NOTE | 2018-09-17 21:45 | DS ---
DISCHARGE SUMMARY: DATE OF ADMISSION: 09/13/18 DATE OF DISCHARGE: 09/17/18 PRIMARY DIAGNOSES: 1. Chronic atrial fibrillation with symptomatic bradycardia. 2. Status post pacemaker placement for bradycardia. 3. Congestive heart failure exacerbation/right-sided heart failure. 4. Mediastinal lymphadenopathy. 5. Coronary artery disease with prior coronary artery bypass graft. 6. Moderate aortic stenosis. 7. Atrial fibrillation. SECONDARY DIAGNOSES: 1. Right bundle-branch block. 2. Coronary artery disease, coronary artery bypass graft. 3. Atrial fibrillation. 4. Congestive heart failure. 5. Cerebrovascular accident. HOSPITAL COURSE: An 83-year-old male with past medical history of heart failure with reduced ejectio n fraction, now normalized, status post stenting with severe triple-vessel disease and CABG in the wa st, atrial fibrillation, came into the hospital with shortness of breath on exertion, who was recentl y diagnosed with pneumonia at [facility] on 09/12/18 and was referred to the ER at that time wit h appearance of multifocal infiltrate on his chest x-ray and bradycardia; however, the patient then r efused to come to the ER. The patient then called his training and documentation specialist on 09/13/18, who advised him to c ome to the emergency room. In the emergency room, the patient had a chest x-ray consistent with hear t failure and was needing 6 L of oxygen to maintain his oxygen saturation. The patient on room was n oted to have O2 sat in the 70s. Patient was admitted in May 2017 and at that time, was noted to have a borderline bradycardia with heart rate in the 40s and the metoprolol was discontinued at that time. Due to heart failure exacerbation and severe bradycardia, patient was admitted to the hospital . Patient had cardiology consultation and was seen by Dr. Junior and Dr. Joseph. Patient had si ngle chamber pacemaker implanted on 09/16/[address] Kimberly Junior for symptomatic bradycardia. Instru ctions on postpacemaker placement given to the patient, patient also being discharged on Keflex as ad vised by Cardiology for 3 days. Patient was previously on Coumadin for atrial fibrillation. Per disc ussion with Dr. Joseph, patient at the time of discharge is being discharged on Eliquis. Patient had CTA chest and thorax done during hospital stay for severe shortness of breath and due to concern of recent pneumonia, which showed no acute or chronic pulmonary emboli and findings were suggestive m ore of congestive heart failure and less likely pneumonia. Patient was not continued on antibiotics through the hospital course; however, was diuresed with IV Lasix and then p.o. Lasix and has signific antly improved. With respect to the heart failure, patient appears to be doing well at this time and is not on oral diuretics at home, will be discharged on p.o. Lasix 20 mg and patient has a followup appointment with Cardiology in a week and it can be further decided if the Lasix needs to be increase d or stopped. Patient on CTA was also noted to have multiple new bilateral pulmonary nodules, possibl y metastatic. Findings consistent with possible old granulomatous disease as well and was noted to orozco ve hilar lymphadenopathy with sarcoidosis under consideration. Patient was seen by Dr. Mukherjee during hospital stay for evaluation of this. LINDA level was obtained, which is currently pending and CT fin dings are concerning for sarcoid and there was some concern if the sarcoid was also involving the hea rt. For further evaluation and biopsy, the plan is to schedule the patient for bronchoscopy and EBUS -guided lymph node biopsy to obtain diagnosis as an outpatient. This has been discussed with the pat ient and patient to follow up with Dr. Mukherjee as an outpatient. Patient also to follow up with his [facility] doctor. Patient discharged on p.o. Keflex as described above for 3 days after pacemaker placement. Patient also to follow up on 09/23/18 with Cardiology at [facility] as already sched ed. Vitals and labs noted to be stable at time of discharge. [facility] Patient had an echocardiogram on 09/13/18 during hospital stay, which showed moderate concentric left ventricular hypertrophy, ejection fraction is 60% to 65%, aortic valve area calculated 1.1 cm, RV systolic pressure noted to be 65 to 70 mmHg, aortic stenosis noted to be worse and severe pulmonar y hypertension, which was new for the patient was noted. The patient to follow up with Pulmonary as an outpatient as noted above. Vitals and labs noted to be stable at time of discharge. MEDICATIONS AT TIME OF DISCHARGE: 1. Eliquis 5 mg p.o. b.i.d. 2. Aspirin 81 mg p.o. daily. 3. Keflex 250 mg p.o. b.i.d. 4. Furosemide 20 mg p.o. daily. PHYSICAL EXAM: HEENT: NCAT. Heart: S1, S2 present, irregularly irregular at time of exam. Lungs: Clear to auscultation bilaterally. No JVD. Abdomen: Soft. Extremities: No edema. Neuro: Alert and oriented x3. FOLLOWUP: 1. Patient to follow up with PCP as an outpatient. 2. Patient to follow up with Cardiology as an outpatient. 3. Patient to follow up with Pulmonary as outpatient. TIME SPENT: Total time spent on discharge is equal to 60 minutes. [id number]/[facility] #: [id number]
== END 2018-09-17 13:48 | disposition home or self-care (01) | DRG 242 ==
LOC: ED 10:06 → ICU 13:48 → MEDTELE 09-16 13:00
PROVIDERS: ADMIT Internal Medicine; ATTEND Internal Medicine
PROC: 02H63JZ Insertion of Pacemaker Lead into Right Atrium, Percutaneous Approach (ICD-10-PCS; 2018-09-16)
PROC: 0JH604Z Insertion of Pacemaker, Single Chamber into Chest Subcutaneous Tissue and Fascia, Open Approach (ICD-10-PCS; principal; 2018-09-16 07:00)
DX: I48.2 Chronic atrial fibrillation (principal); I50.23 Acute on chronic systolic (congestive) heart failure; J96.91 Respiratory failure, unspecified with hypoxia; J98.11 Atelectasis; R00.1 Bradycardia, unspecified; I45.10 Unspecified right bundle-branch block; I71.4 Abdominal aortic aneurysm, without rupture; Z66 Do not resuscitate; D86.89 Sarcoidosis of other sites; I25.10 Atherosclerotic heart disease of native coronary artery without angina pectoris; I11.0 Hypertensive heart disease with heart failure; I27.20 Pulmonary hypertension, unspecified; I08.2 Rheumatic disorders of both aortic and tricuspid valves; R59.0 Localized enlarged lymph nodes; R91.8 Other nonspecific abnormal finding of lung field; I50.810 Right heart failure, unspecified; I47.2 Ventricular tachycardia; Z95.1 Presence of aortocoronary bypass graft; Z86.73 Personal history of transient ischemic attack (TIA), and cerebral infarction without residual deficits; Z88.5 Allergy status to narcotic agent; Z87.01 Personal history of pneumonia (recurrent); Z90.49 Acquired absence of other specified parts of digestive tract; Z82.49 Family history of ischemic heart disease and other diseases of the circulatory system; Z87.891 Personal history of nicotine dependence; Z79.01 Long term (current) use of anticoagulants; Z79.82 Long term (current) use of aspirin
CPT/HCPCS: 33207; 36415; 71045; 71046; 71275; 74177; 80048; 80053; 82164; 82803; 83605; 83735; 83880; 84439; 84443; 84484; 85025; 85027; 85379; 85610; 85730; 86140; 86618; 87040; 87641; 93005; 93306; 99156; 99157; 99285; A9270-GY; C1786; C1892; C1898; J0461; J0690; J1940; J2250; J3010; Q9967

== ENCOUNTER 2021-07-22 15:05 | Inpatient (IN) ==
[2021-07-22 16:20] LABS: ABS Eosinophils 0.1 10^3/ul (0-0.6); ABS Monocytes 0.6 10^3/ul (0-0.8); ABS Neutrophils 5.2 10^3/ul (1.5-7.7); Eosinophil % 0.9 %; Hematocrit 29 % (42-52); Hemoglobin 9.8 g/dL (14.0-18.0); Lymphocyte % 14.4 %; Mean Corpuscular HGB Conc 34 g/dL (31-36); Mean Corpuscular Hemoglobin 33 pg (27-31); Mean Corpuscular Volume 96 fL (80-94); Mean Platelet Volume 7.7 fL (7.4-10.4); Platelet Count 287 10^3/uL (150-450); Red Blood Count 3.01 10^6 /uL (4.18-5.48); Red Cell Distribution Width 15 % (10-15); White Blood Count 6.9 10^3/uL (3.5-10.8)
[2021-07-22 16:38] LABS: ALT 14 U/L (7-52); AST 26 U/L (13-39); Albumin 3.7 g/dL (3.2-5.2); Albumin/Globulin Ratio 1.1 (1-3); Alkaline Phosphatase 94 U/L (35-149); Anion Gap 5 mmol/L (2-11); Blood Urea Nitrogen 23 mg/dL (6-24); CO2 Carbon Dioxide 30 mmol/L (22-32); Calcium 8.4 mg/dL (8.6-10.3); Chloride 102 mmol/L (101-111); Globulin 3.4 g/dL (2-4); Glucose 101 mg/dL (70-100); Potassium 3.9 mmol/L (3.5-5.0); Sodium 137 mmol/L (135-145); Total Protein 7.1 g/dL (6.4-8.9); eGFR CKD-EPI 74.2 (>60)
[2021-07-22 16:43] LABS: Rapid COVID-19 Molecular Undetected (Undetected)
[2021-07-22 16:45] LABS: Troponin I 0.05 ng/mL (<0.03)
[2021-07-22] MEDS ORDERED: Furosemide 40 mg/4 ml IV VIAL IV ONE (17:13)
[2021-07-22] MEDS ORDERED: Warfarin per PHARMACY **NOTE FOLLOW UP SCH (19:00)
[2021-07-22 23:11] LABS: INR 1.55 (0.86-1.15)
[2021-07-22 23:26] LABS: Troponin I 0.05 ng/mL (<0.03)
[2021-07-22 23:41] LABS: % Iron Saturation 12 % (15-55); Iron 34 ug/dL (50-212); Total Iron Binding Capacity 290 mcg/dL (250-450); Transferrin 207 mg/dL (203-362); Unsaturated Iron Binding < 275 ug/dL
[2021-07-23 00:03] LABS: Ferritin 299.9 ng/mL (24-336)
[2021-07-23 00:07] LABS: Folate 12.07 ng/mL (5.90-24.80)
[2021-07-23 00:08] LABS: Vitamin B12 364 pg/mL (180-914)
[2021-07-23 02:40] LABS: Troponin I 0.06 ng/mL (<0.03)
[2021-07-23 05:32] LABS: ABS Eosinophils 0.1 10^3/ul (0-0.6); ABS Lymphocytes 1.1 10^3/ul (1.0-4.8); ABS Monocytes 0.7 10^3/ul (0-0.8); ABS Neutrophils 4.1 10^3/ul (1.5-7.7); Eosinophil % 1.1 %; Hematocrit 29 % (42-52); Hemoglobin 9.6 g/dL (14.0-18.0); Lymphocyte % 18.7 %; Mean Corpuscular HGB Conc 33 g/dL (31-36); Mean Corpuscular Hemoglobin 32 pg (27-31); Mean Corpuscular Volume 97 fL (80-94); Mean Platelet Volume 8.1 fL (7.4-10.4); Platelet Count 247 10^3/uL (150-450); Red Blood Count 2.97 10^6 /uL (4.18-5.48); Red Cell Distribution Width 15 % (10-15)
[2021-07-23 05:42] LABS: INR 1.47 (0.86-1.15)
[2021-07-23 05:44] LABS: Anion Gap 6 mmol/L (2-11); Blood Urea Nitrogen 24 mg/dL (6-24); CO2 Carbon Dioxide 28 mmol/L (22-32); Calcium 8.5 mg/dL (8.6-10.3); Chloride 103 mmol/L (101-111); Glucose 102 mg/dL (70-100); Magnesium 1.9 mg/dL (1.9-2.7); Potassium 4.1 mmol/L (3.5-5.0); Sodium 137 mmol/L (135-145); eGFR CKD-EPI 73.3 (>60)
[2021-07-23 05:49] LABS: Troponin I 0.05 ng/mL (<0.03)
[2021-07-23] MEDS ORDERED: Furosemide 40 mg/4 ml IV VIAL IV SCH (09:00)
[2021-07-23] MEDS: Enoxaparin 80 MG/0.8 ML SYR SUBCUT SCH ×2 (12:31→19:50)
[2021-07-23 15:48] LABS: C Reactive Protein 11.92 mg/L (<8.01)
[2021-07-23 16:09] LABS: % Iron Saturation 9 % (15-55); Iron 40 ug/dL (50-212); Total Iron Binding Capacity 427 mcg/dL (250-450); Transferrin 305 mg/dL (203-362); Unsaturated Iron Binding < 412 ug/dL
[2021-07-23 16:31] LABS: Ferritin 19.8 ng/mL (24-336)
[2021-07-23 16:35] LABS: Folate 15.69 ng/mL (5.90-24.80); Vitamin B12 195 pg/mL (180-914)
[2021-07-23] MEDS ORDERED: Warfarin DAILY REMINDER **NOTE FOLLOW UP SCH (17:00)
[2021-07-23] MEDS: Furosemide 40 mg/4 ml IV VIAL IV SCH (17:07)
[2021-07-24 07:15] LABS: INR 1.35 (0.86-1.15)
[2021-07-24] MEDS: Enoxaparin 80 MG/0.8 ML SYR SUBCUT SCH (09:08)
[2021-07-24] MEDS: Furosemide 40 mg/4 ml IV VIAL IV SCH (09:08)
[2021-07-24 11:18] VITALS: BP 123/56
== END 2021-07-24 12:40 | disposition home or self-care (01) | DRG 291 ==
LOC: ED 15:05 → EDHOLD 18:38 → SUATTDRO 18:38 → MED 21:12
PROVIDERS: ADMIT Hospitalist; ATTEND Internal Medicine